=== PATIENT | female | born 1965 | race Caucasian/White ===

== ENCOUNTER 2018-04-23 18:12 | Inpatient (IN) | payer OTHER ==
[~2018-04-23] VITALS: Ht 160 cm; Wt 47.2 kg
--- NOTE | ~2018-04-23 | HC ---
[facility] [place] [address] CONSULTATION Name: HALINAAugust Room #: 361-P ADM IN M.R.#: [id number] Admission: 04/23/18 Attend Phys: Tristin Meyers MD Discharge: Date of : 61 Report #: [id number] THIS REPORT FOR: //name// CC: Tristin Meyers FAM physician/PCP ATTENDING PHYSICIAN: Dr. Meyers HISTORY OF PRESENT ILLNESS: This is a patient who I had seen several months ago for practically same issues. She has gone off her psychotropics. She is drinking. She has bouts of pancreatitis. She says that her anxiety remains high. She would like to get back on medications that seemed to help her last time. She does have history of hepatitis C as well. The patient says she has longstanding history of diagnoses including schizophrenia, PTSD. She is intermittent with her desire to stay compliant with medication she has not gotten followup for several years. The patient says she continues to be very anxious. She felt the Neurontin was helpful in terms of helping her peripheral neuropathy. She says "I'm not sure from what diagnosis." She said the trazodone helped with sleep. She wants to get back on the gabapentin. She is willing to get back on medications and willing to have followup in a [facility]. ALLERGIES: She has no known drug allergies. FAMILY PSYCHIATRIC HISTORY: She denies. SOCIAL HISTORY: She drinks about a pint of liquor a day. The patient struggles with support, she says she has at home, though the last time she was here, it was documented she was homeless and she says she has little support. She does not want any type of rehab referral or drug treatment, positive marijuana. Her laboratory is reviewed as well. Initially, lipase elevated at 647. Elevated alkaline phosphatase 152, ALT 131 and AST 330. She smokes marijuana 3 times a week. PAST MEDICAL HISTORY: History of hepatitis C and liver failure secondary to hypertension, pancreatitis secondary to alcohol abuse. ALLERGIES: HALDOL. MENTAL STATUS EXAMINATION: Anxious female, looks older than her apparent age. She is ruminative in her thought processes. She is not agitated. She is calm. She is polite. She is cooperative. She is denying danger to herself or others. She says she has voices coming to her and they bother her and sometimes it pushes her to drink. She understands risks and benefits, goals [facility] [address] [place] [address] CONSULTATION Name: HALINAAugust Room #: 361-P [facility] IN [facility].#: [id number] Admission: 04/23/18 Attend Phys: Tristin Meyers MD Discharge: Date of : 61 Report #: [id number] of care and treatment and is willing to take medications including risperidone, trazodone and Neurontin after discussion of risks and benefits of doing so. The patient understands risks and benefits including tardive dyskinesia and metabolic syndrome among other risks and benefits. Alert, oriented x 4. She has fair attention, fair concentration. Seems to have average intelligence based on fund of knowledge vocabulary. ASSETS: Willing to get help take medications. LIABILITIES: Relapses and no desire for rehabilitation treatment. DIAGNOSTIC IMPRESSION: AXIS I: 1. By the patient's report, she says she has diagnosis of schizophrenia. 2. Alcohol dependence. AXIS II: Deferred. AXIS III: As above. AXIS IV: Severe. AXIS V: Global Assessment of Functioning currently 50%. PLAN: The patient will be started on medications for sleep and get back on gabapentin. We will try a slightly higher dosing this time to see if it helps with anxiety as well as her, she complains she has, neuropathy, which is likely secondary to alcoholism. We will continue with an antipsychotic medication approach. We will try low-dose risperidone 0.5 mg twice daily. Thank you for the consultation. We will follow the patient. I do not anticipate her needing inpatient psychiatric care once she is medically stabilized. She can be discharged once medically stabilized. By: [id number] Krishna Rosales MD /nt
[~2018-04-23 18:12] MED LIST: GABAPENTIN 100100 MG PO; HYDROCODONE-AP1 EAC6 PO; LISINOPRIL20 MG PO; NORVASC10 MG PO; PROTONIX40 M1 PO; VITAMIN B-1100 M2 PO
[2018-04-23 18:14] VITALS: BP 199/108
[2018-04-23 19:02] LABS: URINE BILIRUBIN NEGATIVE (Negative); URINE BLOOD NEGATIVE (Negative); URINE CLARITY CLEAR; URINE COLOR YELLOW; URINE GLUCOSE-RANDOM* NEGATIVE (Negative); URINE KETONES NEGATIVE (Negative); URINE NITRITE-REFLEX NEGATIVE (Negative); URINE PROTEIN (DIPSTICK) NEGATIVE (Negative); URINE UROBILINOGEN 0.2 E.U./dl (0.2-1.0)
[2018-04-23 19:04] LABS: URINE LEUKOCYTES-REFLEX TRACE (Negative)
[2018-04-23 19:25] LABS: AMP/METHAMP Negative (Negative); BARBITURATES Negative (Negative); BENZODIAZEPINES Negative (Negative); COCAINE Negative (Negative); METHADONE Negative (Negative); OPIATES Negative (Negative); PCP Negative (Negative)
[2018-04-23 19:57] LABS: ABSOLUTE NEUTROPHILS 6.8 thou/uL (1.4-8.2); EOSINOPHILS 1.4 % (0.0-3.0); HEMATOCRIT 37.3 % (37.0-47.0); HEMOGLOBIN 13.1 gm/dL (12.0-15.0); MCHC 35.2 g/dL (28.0-37.0); MCV 90.9 fL (80.0-100.0); MONOCYTES 6.2 % (1.0-8.0); PLATELET COUNT 232 thou/uL (150-400); POLYS 78.4 % (36.0-66.0); RDW 13.7 % (10.5-14.5); WBC 8.6 thou/uL (4.0-11.0)
[2018-04-23 20:11] LABS: ALBUMIN 3.4 g/dL (3.4-5.0); CALCIUM 9.2 mg/dL (8.5-10.1); DIRECT BILIRUBIN 0.5 mg/dL (<0.1-0.3); TOTAL BILIRUBIN 0.8 mg/dL (<0.1-1.0); TOTAL PROTEIN 8.7 g/dL (6.4-8.2)
[2018-04-23 20:16] LABS: POTASSIUM 2.1 mmol/L (3.5-5.1)
[2018-04-23 21:47] VITALS: BP 184/123
[2018-04-23 22:36] VITALS: BP 190/112
[2018-04-23 22:40] VITALS: BP 197/127
[2018-04-23 23:19] LABS: MAGNESIUM 1.7 mg/dL (1.8-2.4); PHOSPHORUS 3.1 mg/dL (2.5-4.9)
[2018-04-24 05:01] VITALS: BP 186/114
[2018-04-24 05:58] LABS: CALCIUM 8.6 mg/dL (8.5-10.1); CREATININE 0.9 mg/dL (0.6-1.0)
[2018-04-24 06:00] LABS: POTASSIUM 3.4 mmol/L (3.5-5.1)
[2018-04-24 07:31] VITALS: BP 120/80
[2018-04-24 13:20] VITALS: BP 110/70
[2018-04-24 17:09] VITALS: BP 115/71
[2018-04-24 20:04] VITALS: BP 108/68
[2018-04-25 04:41] VITALS: BP 141/95; BP 149/95
[2018-04-25 06:30] LABS: CALCIUM 8.4 mg/dL (8.5-10.1); CREATININE 0.9 mg/dL (0.6-1.0); MAGNESIUM 1.6 mg/dL (1.8-2.4); PHOSPHORUS 2.7 mg/dL (2.5-4.9); POTASSIUM 3.3 mmol/L (3.5-5.1)
[2018-04-25 07:22] VITALS: BP 150/105
[2018-04-25 11:31] VITALS: BP 115/78
[2018-04-25 16:42] VITALS: BP 122/89
[2018-04-25 19:16] VITALS: BP 113/81
[2018-04-26 03:27] VITALS: BP 156/89
[2018-04-26 05:54] LABS: CALCIUM 8.6 mg/dL (8.5-10.1); CREATININE 0.9 mg/dL (0.6-1.0); POTASSIUM 4.5 mmol/L (3.5-5.1)
[2018-04-26 07:30] VITALS: BP 120/72
[2018-04-26 14:04] VITALS: BP 129/72
[2018-04-26 16:24] VITALS: BP 184/112
== END 2018-04-26 16:00 | disposition home or self-care (01) | DRG 440 ==
LOC: ER 18:12 → EROBS 21:27 → 3W 22:16
PROVIDERS: Emergency Medicine; Hospitalist; Nurse Practitioner Family
DX: K85.20 Alcohol induced acute pancreatitis without necrosis or infection (principal); I10 Essential (primary) hypertension; F17.210 Nicotine dependence, cigarettes, uncomplicated; E87.6 Hypokalemia; K72.90 Hepatic failure, unspecified without coma; F20.9 Schizophrenia, unspecified; F19.10 Other psychoactive substance abuse, uncomplicated; B18.2 Chronic viral hepatitis C; K59.00 Constipation, unspecified; K86.0 Alcohol-induced chronic pancreatitis; K58.9 Irritable bowel syndrome, unspecified; F31.9 Bipolar disorder, unspecified; F10.220 Alcohol dependence with intoxication, uncomplicated; F43.10 Post-traumatic stress disorder, unspecified; G62.9 Polyneuropathy, unspecified; Z59.0 Homelessness; Z71.6 Tobacco abuse counseling; Z71.41 Alcohol abuse counseling and surveillance of alcoholic; Z71.51 Drug abuse counseling and surveillance of drug abuser; Z79.899 Other long term (current) drug therapy; Z88.8 Allergy status to other drugs, medicaments and biological substances; Z28.21 Immunization not carried out because of patient refusal
CPT/HCPCS: 10879

== ENCOUNTER 2018-06-09 09:48 | Inpatient (IN) | payer OTHER ==
[2018-06-08 20:30] VITALS: BP 185/116
[2018-06-09] VITALS (9 sets, daily range): BP systolic 152–185; BP diastolic 95–116
[~2018-06-09] VITALS: Ht 160 cm; Wt 55.3 kg
[~2018-06-09 09:48] MED LIST changes: +PRENATAL COMPL1 EACH PO
[2018-06-09 10:00] LABS: URINE BILIRUBIN NEGATIVE (Negative); URINE BLOOD NEGATIVE (Negative); URINE CLARITY CLEAR; URINE COLOR YELLOW; URINE GLUCOSE-RANDOM* NEGATIVE (Negative); URINE KETONES NEGATIVE (Negative); URINE NITRITE-REFLEX NEGATIVE (Negative); URINE PROTEIN (DIPSTICK) NEGATIVE (Negative); URINE UROBILINOGEN 0.2 E.U./dl (0.2-1.0)
[2018-06-09 10:01] LABS: URINE LEUKOCYTES-REFLEX NEGATIVE (Negative)
--- NOTE | 2018-06-09 10:23 | NUR ---
HARD STICK, THIS NURSE AND TALAT ALAN ATTEMPTED IV X2
[2018-06-09 10:59] LABS: HEMATOCRIT 40.9 % (37.0-47.0); HEMOGLOBIN 13.8 gm/dL (12.0-15.0); MCHC 33.8 g/dL (28.0-37.0); MCV 91.6 fL (80.0-100.0); RBC 4.47 mil/uL (4.20-5.00); RDW 14.6 % (10.5-14.5); WBC 5.4 thou/uL (4.0-11.0)
[2018-06-09 11:03] LABS: CALCIUM 8.7 mg/dL (8.5-10.1); CREATININE 0.9 mg/dL (0.6-1.0)
[2018-06-09 11:09] LABS: ALBUMIN 3.5 g/dL (3.4-5.0); TOTAL BILIRUBIN 0.6 mg/dL (<0.1-1.0)
[2018-06-09 11:14] LABS: POTASSIUM 2.9 mmol/L (3.5-5.1)
[2018-06-09 11:28] LABS: AMP/METHAMP Negative (Negative); BARBITURATES Negative (Negative); BENZODIAZEPINES Negative (Negative); COCAINE Negative (Negative); METHADONE Negative (Negative); OPIATES Negative (Negative); PCP Negative (Negative)
--- NOTE | 2018-06-09 11:40 | NUR ---
DR CAMEJO WANTS IV DUE TO ADMISSION
[2018-06-09 13:02] LABS: FOLIC ACID 9.6 ng/mL (8.6-58.9)
--- NOTE | 2018-06-09 15:10 | NUR ---
PATIENT'S GOWN AND LINENS WET. PT STATES SHE SPILLED HER WATER. PT REFUSES TO LET STAFF CHANGE BED LINENS OR GOWN. STATES SHE DOESN'T CARE AND ABSOLUTELY DOES NOT WANT TO LET ANYONE CHANGE THE SHEET OR HER GOWN. WILL CONTINUE TO ENCORAGE.
--- NOTE | 2018-06-09 19:28 | NUR ---
PT ARRIVED TO UNIT FROM ED. PT IS SLEEPING, WILL NOT FOLLOW COMMANDS, WILL NOT ANSWER QUESTIONS, OR ALLOW ME TO COMPLETE MY ADMISSION OR ASSESSMENT THIS TIME. THE ONLY THING THE PT WILL VERBALIZE IS THAT SHE WANTS "A SHOT", CONTINUALLY ASKING IF IT IS TIME FOR A SHOT. PROVIDING LORAZAPAM PER PROTOCOL AND ABLE TO ASSESS CIWA. PT IMPULSIVE AT TIMES WELL. EASILY REDIRECTED. PT ONLY SEEMS TO COOPERATE OR TALK WHEN SHE IS ASKING FOR SOMETHING. UNABLE TO ASSESS PT PROPERLY AND COMPLETE ADMISSION PROCESS.
[2018-06-10] VITALS (7 sets, daily range): BP systolic 109–156; BP diastolic 72–99
[2018-06-10 04:05] LABS: HEMATOCRIT 32.8 % (37.0-47.0); MCH 30.8 pg (26.0-34.0); MCHC 33.6 g/dL (28.0-37.0); MCV 91.8 fL (80.0-100.0); RBC 3.58 mil/uL (4.20-5.00); RDW 14.4 % (10.5-14.5); WBC 7.1 thou/uL (4.0-11.0)
[2018-06-10 04:09] LABS: CALCIUM 7.4 mg/dL (8.5-10.1); POTASSIUM 3.2 mmol/L (3.5-5.1)
[2018-06-10 04:16] LABS: ALBUMIN 2.8 g/dL (3.4-5.0); MAGNESIUM 1.1 mg/dL (1.8-2.4); TOTAL BILIRUBIN 0.8 mg/dL (<0.1-1.0)
--- NOTE | 2018-06-10 06:28 | NUR ---
ASSUMED PT CARE AT 1900 WITH NO SIGN OF DISTRESS NOTED. PT IS DROWSY AND REFUSES TO ANSWER ADMISSION QUESTIONS OR TALK TO THE DOCTOR PER DIEM REGISTERED NURSE. COMPLETE ASSESSMENT NOT COMPLETED DUE TO PATIENT'S NOT BEEN RECEPTIVE. PT IS STABEL, PT IS ON ETOH WITHDRWAL PROTOCOL. PT IS STABLE, PT IS NOTED TO HAVE ELEVATED BLOOD PRESSURE. MISSILE INSPECTOR PREFLIGHT NOTIFIED ABOUT ELEVATED BLOOD PRESSURE AND MEDICATION IS ADMINISTERED. NO FURTHER SIGN OF DISTRESS NOTED AT THIS TIME. DENIES ANY FURTHER NEEDS.
--- NOTE | 2018-06-10 09:41 | NUR ---
Nutrition: pt seen due to admitting dx of pancreatitis. Hx ETOH, pancreatitis, drug abuse, hepatitis C. CT showed lung mass, concern for CA. Homeless per H&P, lives in [facility]. Noted UBW last year 110#. Current 140#. Pt feels she has gained some weight. Good appetite reported and asking for food currently although only on clear liquids. Will offer ensure clear BID. On , thiamine supplementation. Folate/B12 WNL. Follow for ability to advance diet. Place as low nutrition risk.
--- NOTE | 2018-06-10 14:15 | NUR ---
met with patient she discharged from [facility] in May 2018 with same diagnosis of ETOH withdraw, pancreatitis. At that time patient given resources for outpatient tx options and [facility] clinic info. Patient reports she never f/u on calling [facility] or any resources given. Patient reports she does not want to stop drinking right now. She has not seen therapist or phys on outpatient basis. She reports at [place] she is staying in apt with friend. her friend knows she is in hospital. [facility].
--- NOTE | 2018-06-10 18:09 | NUR ---
PT CARE ASSUMED AT APPROX 0700. PT ALERT AND ORIENTED X4 AT THIS TIME. MOST OF DAY PT WAS DROWSY BUT ALWAYS EASILY AROUSABLE. REPORTS HEADACHE INTERMITTENTLY. CIWA SCORE HAS RANGED FROM 5-11. MEDICATED APPROPRIATELY. VSS. FALL PRECAUTIONS IN PLACE BUT PT NONCOMPLIANT WITH CALLING FOR ASSISTANCE TO AMBULATE. MONITORING AND MEDICATING FOR ELEVATED AMMONIA. CLEAR LIQUID DIET MAINTAINED. IVF MAINTAINED. MAG AND K+ REPLACED THIS SHIFT. LEVEL REASSESSMENTS TIMED FOR RECOLLECTION. WILL F/U. ADMISSION COMPLETED SINCE PT WAS MORE ALERT THIS SHIFT. NO DISTRESS NOTED AT THIS TIME OR THIS SHIFT.
[2018-06-10 18:19] LABS: MAGNESIUM 1.5 mg/dL (1.8-2.4); POTASSIUM 4.2 mmol/L (3.5-5.1)
--- NOTE | 2018-06-11 03:22 | NUR ---
ASSESSMENT DOCUMENTED.PT RESTING IN NO ACUTE DISTRESS.REMAINS A/OX4.NO BEHAVIOUR CHANGES NOTED.CONTINUES TO C/O MILD HEADACHE AND NAUSEA.ON ALCOHOL WITHDRAWAL PER PROTOCOL,CIWR SCORES 5-8,MEDICATED PER ORDERS.PT UP AMBULATING ON THE HALLWAYS X2 WITH STAFF ASSIST.GAIT STEADY.IVF INFUSING,VOIDING ADEQUATELY.ON CLEAR LIQUID DIET THAT PT WANTS TO BE ADVANCED TO REGULAR FOOD.VSS.PAIN MEDS GIVEN FOR BACK PAIN WITH RELIEF.PT DENIES ANY OTHER NEEDS AT THIS TIME.WILL CONT TO MONITOR PER POC.
[2018-06-11 04:26] LABS: ALBUMIN 2.5 g/dL (3.4-5.0); MAGNESIUM 1.7 mg/dL (1.8-2.4); PHOSPHORUS 2.2 mg/dL (2.5-4.9); POTASSIUM 3.9 mmol/L (3.5-5.1); TOTAL BILIRUBIN 0.8 mg/dL (<0.1-1.0); TOTAL PROTEIN 6.5 g/dL (6.4-8.2)
[2018-06-11 04:32] LABS: HEMOGLOBIN 10.9 gm/dL (12.0-15.0); MCH 30.8 pg (26.0-34.0); MCHC 32.9 g/dL (28.0-37.0); MCV 93.5 fL (80.0-100.0); RBC 3.53 mil/uL (4.20-5.00); RDW 14.6 % (10.5-14.5); WBC 4.7 thou/uL (4.0-11.0)
[2018-06-11 04:34] VITALS: BP 128/83
[2018-06-11 07:10] VITALS: BP 119/70
[2018-06-11 11:10] VITALS: BP 141/99
[2018-06-11 15:43] VITALS: BP 148/84
--- NOTE | 2018-06-11 15:59 | NUR ---
PT CARE ASSUMED APPROX 0700. PT ALERT AND ORIENTED X4. DENIES SOA. C/O ABD PAIN 2-08/08. MANAGING PAIN WITH FENTANYL. CIWA PROTOCOL REMAINS IN POC. ASSESSING AND MEDICATING APPROPRIATELY. VSS. PT IS GETTING MORE ANXIOUS AND AGITATED. WILL MEDICATE APPROPRIATELY. NONCOMPLIANT WITH REQUEST TO CALL FOR ASSISTANCE TO AMBULATE. FALL PRECAUTIONS IN PLACE. REINFORCING POLICY. IVF RUNNING. DIET ADVANCED. TOLERATING. MAG REPLACED THIS SHIFT PER PROTOCOL. NO S/S OF DISTRESS NOTED. PT SAFE AT THIS TIME.
[2018-06-11 19:40] VITALS: BP 133/91
--- NOTE | 2018-06-12 03:54 | NUR ---
ASSESSMENT DOCUMENTED.PT RESTING IN NO ACUTE DISTRESS.VSS.PT CONTINUES TO C/O PAIN TO ABD/BACK,NAUSEA ADN HEADACHES.ON ALCOHOL WITHDRAWAL,CIWR SCORE HAS BEEN 10,TREATMENT ADMINISTERED PER ORDERS.PT REQUESTING FOR SNACKS AND DRINKS FREQUENTLY.AMBULATES ON THE HALLWAY SEVERAL TIMES OVER THE NIGHT.POC IS TO HAVE EGD/COLONOSCOPY ON THURSDAY.WILL CONT TO MONITOR PER POC.
[2018-06-12 04:14] VITALS: BP 126/83
[2018-06-12 05:38] LABS: ALBUMIN 2.4 g/dL (3.4-5.0); ANION GAP 9 mmol/L (7-16); BUN 11 mg/dL (7-18); CALCIUM 8.4 mg/dL (8.5-10.1); CHLORIDE 110 mmol/L (98-107); CHOLESTEROL 111 mg/dL (<200); CO2 21 mmol/L (21-32); CREATININE 1.1 mg/dL (0.6-1.0); GLUCOSE 111 mg/dL (74-106); HDL CHOLESTEROL 28 mg/dL (>40); LDL CHOLESTEROL 73 mg/dL (<100); LIPASE 463 U/L (73-393); MAGNESIUM 1.6 mg/dL (1.8-2.4); SERUM ASSESSMENT Clear; SGOT 180 U/L (15-37); SGPT 95 U/L (30-65); SODIUM 140 mmol/L (136-145); TOTAL BILIRUBIN 0.6 mg/dL (<0.1-1.0); TOTAL PROTEIN 6.5 g/dL (6.4-8.2); TRIGLYCERIDE 53 mg/dL (<150); VLDL 11 mg/dL (<40)
[2018-06-12 08:00] VITALS: BP 118/81
[2018-06-12] MEDS ORDERED: VITAMIN B-1100 M2 PO (11:18)
[2018-06-12] MEDS ORDERED: NICOTINE TRANSD14 M1 TRANSDERM (11:18)
[2018-06-12] MEDS ORDERED: VITAMIN B-12100 MC1 PO (11:18)
[2018-06-12] MEDS ORDERED: ACETAMINOPHEN325 M1 PO (11:18)
[2018-06-12] MEDS ORDERED: ATIVAN1 MG PO (11:18)
[2018-06-12] MEDS ORDERED: A THRU Z SELEC1 EAC6 PO (11:18)
[2018-06-12] MEDS ORDERED: TRAZODONE HCL50 MG PO (11:18)
[2018-06-12] MEDS ORDERED: LACTULOSE20 GM/30 M PO (11:18)
[2018-06-12] MEDS ORDERED: PEPCID20 MG PO (11:18)
[2018-06-12] MEDS ORDERED: CLONIDINE1 EAC1 TRANSDERM (11:18)
[2018-06-12] MEDS ORDERED: MAGNESIUM400 MG PO (11:18)
[2018-06-12 12:47] VITALS: BP 118/81
--- NOTE | 2018-06-12 16:12 | NUR ---
ASSUMED CARE OF PATIENT AT 0700. PT/VITALS STABLE. COMPLAINS OF LOWER BACK PAIN WHICH IS ALLEVIATED WITH FENTANYL. TOLERATES ACTIVITY WELL. ASSESSMENT CHARTED. NO CHEST PAIN NOTED. PATIENT ASKS FOR PAIN MEDICATION AND ANXIETY MEDICINE AT THE EXACT TIME THAT SHE IS DUE FOR IT. PATIENT IS ANXIOUS TO BE DISCHARGED. DISCHARGE ORDERS WRITTEN BY DR. AMADOR. TELE AND IV REMOVED. PATIENT STATES THAT SHE FEELS MUCH BETTER THAN SHE DID ON ADMISSION. SHE STATED THAT SHE HAD NO RIDE HOME AND WAS GIVEN A CAB VOUCHER TO THE [facility] WHERE SHE STAYS. SHE WAS LEFT IN THE ER WAITING ROOM WITH SECURITY AWAITING HER CAB.
== END 2018-06-12 13:09 | disposition home or self-care (01) | DRG 441 ==
LOC: ER 09:48 → EROBS 13:41 → 2N 13:41
PROVIDERS: Emergency Medicine; ADMIT Internal Medicine
DX: K72.90 Hepatic failure, unspecified without coma (principal); K85.20 Alcohol induced acute pancreatitis without necrosis or infection; E43 Unspecified severe protein-calorie malnutrition; N17.9 Acute kidney failure, unspecified; F10.239 Alcohol dependence with withdrawal, unspecified; I10 Essential (primary) hypertension; E87.6 Hypokalemia; F17.210 Nicotine dependence, cigarettes, uncomplicated; B18.2 Chronic viral hepatitis C; K70.0 Alcoholic fatty liver; F10.229 Alcohol dependence with intoxication, unspecified; E83.42 Hypomagnesemia; E83.51 Hypocalcemia; E78.5 Hyperlipidemia, unspecified; N18.3 Chronic kidney disease, stage 3 (moderate); G47.33 Obstructive sleep apnea (adult) (pediatric); F12.10 Cannabis abuse, uncomplicated; E66.01 Morbid (severe) obesity due to excess calories; E11.22 Type 2 diabetes mellitus with diabetic chronic kidney disease; I12.9 Hypertensive chronic kidney disease with stage 1 through stage 4 chronic kidney disease, or unspecified chronic kidney disease; F39 Unspecified mood [affective] disorder; H66.90 Otitis media, unspecified, unspecified ear; F41.9 Anxiety disorder, unspecified; Z68.21 Body mass index [BMI] 21.0-21.9, adult; Z79.899 Other long term (current) drug therapy
CPT/HCPCS: 10081

== ENCOUNTER 2018-07-09 09:31 | Inpatient (IN) | payer OTHER ==
[~2018-07-09] VITALS: Ht 167.6 cm; Wt 59.9 kg
[~2018-07-09 09:31] MED LIST changes: +A THRU Z SELEC1 EAC6 PO; +ACETAMINOPHEN325 M1 PO; +ATIVAN1 MG PO; +CLONIDINE1 EAC1 TRANSDERM; +LACTULOSE20 GM/30 M PO; +MAGNESIUM400 MG PO; +NICOTINE TRANSD14 M1 TRANSDERM; +PEPCID20 MG PO; +TRAZODONE HCL50 MG PO; +VITAMIN B-12100 MC1 PO
[2018-07-09 09:32] VITALS: BP 130/96
--- NOTE | 2018-07-09 10:00 | NUR ---
PT NONCOMPLIANT WITH STAFF, REFUSING TO COMPLY WITH INSTRUCTIONS
[2018-07-09 10:34] LABS: ABSOLUTE NEUTROPHILS 11.9 thou/uL (1.4-8.2); BASOPHILS 0.6 % (0.0-2.0); EOSINOPHILS 0.6 % (0.0-3.0); HEMATOCRIT 40.4 % (37.0-47.0); HEMOGLOBIN 13.9 gm/dL (12.0-15.0); LYMPHOCYTES 14.1 % (24.0-44.0); MCH 31.1 pg (26.0-34.0); MCHC 34.3 g/dL (28.0-37.0); MCV 90.6 fL (80.0-100.0); PLATELET COUNT 285 thou/uL (150-400); POLYS 75.7 % (36.0-66.0); RBC 4.46 mil/uL (4.20-5.00); RDW 14.4 % (10.5-14.5); WBC 15.8 thou/uL (4.0-11.0)
--- NOTE | 2018-07-09 10:45 | NUR ---
PT ADMITS TO SMOKING PCP-LACED MARIJUANA 5 DAYS AGO, AND "MAYBE SINCE THEN, THEY WON'T TELL ME"
[2018-07-09 10:46] LABS: ANION GAP 14 mmol/L (7-16); BUN 8 mg/dL (7-18); CALCIUM 9.3 mg/dL (8.5-10.1); CHLORIDE 104 mmol/L (98-107); CO2 20 mmol/L (21-32); CREATININE 0.8 mg/dL (0.6-1.0); GLUCOSE 125 mg/dL (74-106); POTASSIUM 3.1 mmol/L (3.5-5.1); SODIUM 138 mmol/L (136-145)
[2018-07-09 10:53] LABS: ALBUMIN 3.1 g/dL (3.4-5.0); MAGNESIUM 1.9 mg/dL (1.8-2.4); SALICYLATE 2.9 mg/dL (2.8-20.0); SGOT 99 U/L (15-37); SGPT 70 U/L (30-65); TOTAL BILIRUBIN 0.5 mg/dL (<0.1-1.0); TOTAL PROTEIN 9.1 g/dL (6.4-8.2); TROPONIN-I <0.06 ng/mL (<0.06)
--- NOTE | 2018-07-09 10:55 | NUR ---
PT CLIMBING OUT OF BED AND REPORTING HEARING VOICES AT THIS TIME, TO MOVE TO ROOM 7 FOR PSYCH/AGGRESION PRECAUTIONS
[2018-07-09 11:08] LABS: URINE BILIRUBIN NEGATIVE (Negative); URINE BLOOD NEGATIVE (Negative); URINE CLARITY CLEAR; URINE COLOR YELLOW; URINE GLUCOSE-RANDOM* NEGATIVE (Negative); URINE KETONES NEGATIVE (Negative); URINE LEUKOCYTES-REFLEX NEGATIVE (Negative); URINE NITRITE-REFLEX NEGATIVE (Negative); URINE PROTEIN (DIPSTICK) NEGATIVE (Negative); URINE SPECIFIC GRAVITY <= 1.005 (1.005-1.035); URINE UROBILINOGEN 0.2 E.U./dl (0.2-1.0)
[2018-07-09 11:18] LABS: AMP/METHAMP Negative (Negative); BARBITURATES Negative (Negative); BENZODIAZEPINES Negative (Negative); COCAINE Negative (Negative); METHADONE Negative (Negative); OPIATES Negative (Negative); PCP Negative (Negative)
[2018-07-09 15:18] VITALS: BP 152/78
[2018-07-09 15:28] VITALS: BP 152/74
[2018-07-09 16:00] VITALS: BP 157/103
--- NOTE | 2018-07-09 18:38 | NUR ---
ASSUMED PATIENT CARE FROM ED. IT WAS NOTED IN ED THAT PATIENT WAS HEARING VOICES. PATIENT HAS NOT ACTED LIKE OR VERBALIZED THIS SINCE ARRIVAL TO FLOOR. PATIENTS CIWA WAS 13 UPON ARRIVAL TO FLOOR. ATIVAN GIVEN TWICE ACCORDING TO CIWA PROTOCOL. PATIENT ALSO COMPLAINING OF RIGHT RIB PAIN, FENTANYL GIVEN FOR PAIN. PATIENT REFUSED SCD'S. PATIENT RUNNING SINUS TACH ON THE MONITOR.
[2018-07-09 20:35] VITALS: BP 169/99
[2018-07-10 00:50] VITALS: BP 155/98
--- NOTE | 2018-07-10 04:05 | NUR ---
PT MAKING SLOW PROGRESS TOWARD GOALS. C/O HEADACHE 10/10 UPON INITIAL ASSESSMENT. INITIALLY TREATED WITH TYLENOL. ALSO GIVEN ONE DOSE OF FENTANYL. THIS AM PT REPORTS 5/10 HEADACHE. TYLENOL GIVEN PER REQUEST. SEE CIWA PROTOCOL AND M.A.R. FOR DOSING. INITIAL CIWA SCORE 13. SCORED 9 THIS AM. ON ROOM AIR THROUGHOUT THE NIGHT. WOB INCREASES WITH PT MOVEMENT AND LAST BRIEFLY ONCE LYING BACK DOWN IN BED. HAS DENIED ANY SIGNIFICANT SOA. SEE CHARTING.
[2018-07-10 05:46] VITALS: BP 142/94
[2018-07-10 07:42] LABS: MCH 30.6 pg (26.0-34.0); MCHC 33.5 g/dL (28.0-37.0); MCV 91.3 fL (80.0-100.0); RBC 3.73 mil/uL (4.20-5.00); RDW 14.2 % (10.5-14.5); WBC 8.7 thou/uL (4.0-11.0)
[2018-07-10 07:47] LABS: HEMOGLOBIN 11.4 gm/dL (12.0-15.0)
[2018-07-10 07:53] LABS: ALBUMIN 2.3 g/dL (3.4-5.0); CREATININE 0.8 mg/dL (0.6-1.0); MAGNESIUM 1.2 mg/dL (1.8-2.4); POTASSIUM 3.1 mmol/L (3.5-5.1); TOTAL BILIRUBIN 0.9 mg/dL (<0.1-1.0)
[2018-07-10 08:27] VITALS: BP 150/100
--- NOTE | 2018-07-10 10:40 | EKG ---
[address] [place] [address] ELECTROCARDIOGRAM REPORT Name: ALKA MEADE Room #: 359-P ADM IN M.R.#: [id number] Admission: 07/09/18 Attend Phys: Javy Martinez MD Discharge: Date of : 61 Report #: [id number] THIS REPORT FOR: //name// [facility] ED Test Date: 2018-07-09 Test Time: 11:11:58 Pat Name: ALKA MEADE Department: Room: 359 Gender: F Cane Flume Watchman: ANTELMO : 1965 Requested By: Mark Hodge Order Number: [id number] MD: Cedric Juarez Measurements Intervals [place] Rate: 122 P: 67 NM: 149 QRS: 37 QRSD: 91 T: 44 QT: 330 QTc: 470 Interpretive Statements Sinus tachycardia Abnormal R-wave progression, early transition Compared to ECG 05/11/2018 10:21:39 Atrial abnormality no longer present Electronically Signed On 07-10-2018 10:40:34 SOLAR PV INSTALLER by Cedric Juarez [email or web address] <ELECTRONICALLY SIGNED> By: Cedric Juarez MD 07/10/18 1040 1111 Toni Juarez MD /ROSELINE
--- NOTE | 2018-07-10 12:20 | NUR ---
Assumed care of Pt at 0700. DEISI 9-13. Largely cooperative this AM. Asking for more pain medications. Discussed with physician regarding patients needs - fentanyl d/c'd and added tramadol. shortly after pt calmly asking for AMA paperwork - notified physician - AMA paperwork given and signed.
== END 2018-07-10 12:25 | disposition left against medical advice (07) | DRG 871 ==
LOC: ER 09:31 → EROBS 11:27 → 2N 11:48 → EROBS 12:23 → 3W 15:29
PROVIDERS: Emergency Medicine; ADMIT Internal Medicine
DX: A41.9 Sepsis, unspecified organism (principal); J18.9 Pneumonia, unspecified organism; E43 Unspecified severe protein-calorie malnutrition; F10.230 Alcohol dependence with withdrawal, uncomplicated; K86.0 Alcohol-induced chronic pancreatitis; I10 Essential (primary) hypertension; B19.20 Unspecified viral hepatitis C without hepatic coma; F17.210 Nicotine dependence, cigarettes, uncomplicated; E87.6 Hypokalemia; F41.9 Anxiety disorder, unspecified; F32.9 Major depressive disorder, single episode, unspecified; F43.10 Post-traumatic stress disorder, unspecified; R91.8 Other nonspecific abnormal finding of lung field; K21.9 Gastro-esophageal reflux disease without esophagitis; G31.2 Degeneration of nervous system due to alcohol; Z68.21 Body mass index [BMI] 21.0-21.9, adult; Z91.14 Patient's other noncompliance with medication regimen; Z79.899 Other long term (current) drug therapy
CPT/HCPCS: 10879

== ENCOUNTER 2018-08-10 11:59 | Inpatient (IN) | payer OTHER ==
[~2018-08-10] VITALS: Ht 160 cm; Wt 54.1 kg
[2018-08-10 11:59] VITALS: BP 141/97
[2018-08-10 12:05] VITALS: BP 141/97
[2018-08-10 13:07] LABS: HEMATOCRIT 40.9 % (37.0-47.0); HEMOGLOBIN 13.4 gm/dL (12.0-15.0); MCH 28.7 pg (26.0-34.0); MCHC 32.8 g/dL (28.0-37.0); MCV 87.5 fL (80.0-100.0); PLATELET COUNT 445 thou/uL (150-400); RBC 4.68 mil/uL (4.20-5.00); RDW 16.2 % (10.5-14.5); WBC 19.1 thou/uL (4.0-11.0)
[2018-08-10 13:43] LABS: ABSOLUTE NEUTROPHILS 14.9 thou/uL (1.4-8.2); PLATELET ESTIMATE INCREASED
[2018-08-10 14:12] LABS: CALCIUM 9.2 mg/dL (8.5-10.1); CREATININE 0.9 mg/dL (0.6-1.0); POTASSIUM 3.7 mmol/L (3.5-5.1)
[2018-08-10 14:16] LABS: ALBUMIN 2.3 g/dL (3.4-5.0); TOTAL BILIRUBIN 0.4 mg/dL (<0.1-1.0); TOTAL PROTEIN 7.3 g/dL (6.4-8.2)
[2018-08-10 16:27] LABS: BF NUCLEATED CELLS 360; BF RBC 515
[2018-08-10 16:33] LABS: AMP/METHAMP Negative (Negative); BARBITURATES Negative (Negative); BENZODIAZEPINES POSITIVE (Negative); COCAINE Negative (Negative); METHADONE Negative (Negative); OPIATES Negative (Negative); PCP Negative (Negative)
[2018-08-10 16:33] LABS: CLARITY HAZY; COLOR YELLOW; TOTAL VOLUME 63 mL
[2018-08-10 16:34] LABS: SOURCE ABDOMINAL
[2018-08-10 17:19] LABS: CHOLESTEROL 143 mg/dL (<200); HDL CHOLESTEROL 25 mg/dL (>40); LDL CHOLESTEROL 96 mg/dL (<100); TC:HDL 5.7 Ratio (Not establshd); TRIGLYCERIDE 111 mg/dL (<150); VLDL 22 mg/dL (<40)
[2018-08-10 17:31] LABS: BF MACROPHAGE 7; BF NEUTROPHILS 5
[2018-08-10 17:47] LABS: INR 1.4; PROTIME 14.7 Seconds (9.3-11.4)
[2018-08-10 18:23] LABS: SOURCE ABDOMINAL
[2018-08-10 20:15] VITALS: BP 151/92
[2018-08-10 20:53] VITALS: BP 131/90
[2018-08-10 21:40] VITALS: BP 141/95
[2018-08-10 22:22] LABS: HEMATOCRIT 36.3 % (37.0-47.0); HEMOGLOBIN 11.9 gm/dL (12.0-15.0)
[2018-08-11 00:20] VITALS: BP 136/84
[2018-08-11 04:50] VITALS: BP 139/81
[2018-08-11 05:44] LABS: HEMATOCRIT 35.4 % (37.0-47.0); HEMOGLOBIN 11.5 gm/dL (12.0-15.0)
[2018-08-11 05:56] LABS: ALBUMIN 1.9 g/dL (3.4-5.0); CREATININE 0.8 mg/dL (0.6-1.0); MAGNESIUM 1.6 mg/dL (1.8-2.4); POTASSIUM 3.6 mmol/L (3.5-5.1); TOTAL BILIRUBIN 0.6 mg/dL (<0.1-1.0); TOTAL PROTEIN 5.8 g/dL (6.4-8.2)
--- NOTE | 2018-08-11 06:32 | NUR ---
PT ARRIVED FROM ER VIA WHEELCHAIR. PLACED IN ROOM 355. ORDERS IN PROGRESS. PT C/O GENERALIZED ABDOMINAL PAIN AND STATING "I NEED SOME FENTANYL." ADMISSION ASSESSMENTS COMPLETED. ORDERS RECEIVED FOR MORPHINE AND GIVEN PER ORDERS. PT MAKING SLOW PROGRESS TOWARDS GOALS. SEE CHARTING.
[2018-08-11 07:28] VITALS: BP 111/74
[2018-08-11] MEDS ORDERED: LEVAQUIN 500 M500 M2 PO (10:07)
[2018-08-11] MEDS ORDERED: CHLORDIAZEPOXID25 M1 PO (10:08)
[2018-08-11] MEDS ORDERED: LACTULOSE20 GM/30 M PO (10:08)
[2018-08-11] MEDS ORDERED: VITAMIN B-1100 M2 PO (10:08)
[2018-08-11] MEDS ORDERED: SPIRONOLACTONE25 M1 PO (10:09)
[2018-08-11 11:36] VITALS: BP 124/92
[2018-08-11 14:59] VITALS: BP 124/92
[2018-08-11 16:10] VITALS: BP 120/87
--- NOTE | 2018-08-11 16:17 | NUR ---
ASSESSMENT: CM REVIEWED CHART AND MET WITH PATIENT AT THE BEDSIDE. PT IS ALERT AND ORIENTED X4. PT REPORTS LIVING AT [facility] AND PLANS ON RETURNING THERE AT DISCHARGE. PT REPORTS BEING FULLY INDEPENDENT WITH ADLS AND AMBULATION. CM DISCUSSED ROLE AND OFFERED ANY OUTPATIENT RESOURCES. PT DECLINES THE NEED AND DECLINES THE NEED FOR AA/ETOH RESOURCES. PT REPORTS SHE DOES NOT HAVE TRANSPORATION HOME. CM CONTACTED [facility] [phone], TRIP#[id number]. TO [facility], [address] [place] [address].
--- NOTE | 2018-08-11 17:52 | NUR ---
ASSUMED CARE OF PT AT APPROX 0700. PT IS ALERT AND ORIENTED X4, FORGETFUL AT TIMES BUT EASILY REORIENTED. LOW CIWA SCORING. IV ANTBX GIVEN. NPO UNTIL LUNCH. DENIES N/V. RECIEVED ORDERS FOR DC. PT CALLED RIDE, RIDE THEN BACKED OUT. GOT TRANSPORTATION SET UP FOR PT. PT JUST WAITING ON TRANSPORTATION. IV AND TELE DISCHARGED. DC INSTRUCTIONS AND NEW SCRIPTS GIVEN TO PATIENT. NO NEW CONCERNS VOICED BY PATIENT. PT HAS MET POC GOALS OF DC. WAITING ON TRANSPORT.
== END 2018-08-11 19:23 | disposition home or self-care (01) | DRG 441 ==
LOC: ER 11:59 → EROBS 16:45 → 3W 21:17 → ENTRNSPT 08-11 19:23 → 3W 08-11 19:23
PROVIDERS: Nurse Practitioner; Student in an Organized Health Care Education/Training Program; ADMIT Hospitalist
PROC: 0W9G3ZZ Drainage of Peritoneal Cavity, Percutaneous Approach (ICD-10-PCS; principal; 2018-08-10)
DX: K72.90 Hepatic failure, unspecified without coma (principal); J18.9 Pneumonia, unspecified organism; K92.0 Hematemesis; K86.1 Other chronic pancreatitis; K70.11 Alcoholic hepatitis with ascites; K70.31 Alcoholic cirrhosis of liver with ascites; I10 Essential (primary) hypertension; M54.9 Dorsalgia, unspecified; F12.90 Cannabis use, unspecified, uncomplicated; K52.9 Noninfective gastroenteritis and colitis, unspecified; F17.210 Nicotine dependence, cigarettes, uncomplicated; K59.00 Constipation, unspecified; G89.4 Chronic pain syndrome; F19.10 Other psychoactive substance abuse, uncomplicated; G31.2 Degeneration of nervous system due to alcohol; Z53.21 Procedure and treatment not carried out due to patient leaving prior to being seen by health care provider; Z79.899 Other long term (current) drug therapy
CPT/HCPCS: 10879

== ENCOUNTER 2018-08-12 17:47 | Inpatient (IN) | payer OTHER ==
[~2018-08-12] VITALS: Ht 160 cm; Wt 58.8 kg
[~2018-08-12 17:47] MED LIST changes: +CHLORDIAZEPOXID25 M1 PO; +LEVAQUIN 500 M500 M2 PO; +SPIRONOLACTONE25 M1 PO
[2018-08-12 17:48] VITALS: BP 143/104
[2018-08-12 20:01] LABS: BASOPHILS 0.5 % (0.0-2.0); HEMATOCRIT 38.7 % (37.0-47.0); HEMOGLOBIN 12.8 gm/dL (12.0-15.0); MCH 29.5 pg (26.0-34.0); MCHC 33.1 g/dL (28.0-37.0); MCV 89.2 fL (80.0-100.0); MONOCYTES 4.6 % (1.0-8.0); POLYS 85.9 % (36.0-66.0); RBC 4.34 mil/uL (4.20-5.00); RDW 14.6 % (10.5-14.5); WBC 19.8 thou/uL (4.0-11.0)
[2018-08-12 20:02] LABS: PLATELET COUNT 348 thou/uL (150-400)
[2018-08-12 20:09] LABS: CALCIUM 8.9 mg/dL (8.5-10.1); POTASSIUM 3.4 mmol/L (3.5-5.1)
[2018-08-12 20:15] LABS: ALBUMIN 2.4 g/dL (3.4-5.0); TOTAL BILIRUBIN 0.4 mg/dL (<0.1-1.0); TOTAL PROTEIN 7.5 g/dL (6.4-8.2)
[2018-08-12 20:24] LABS: APTT 25.7 Seconds (24.5-32.8); INR 1.1
[2018-08-13] VITALS (43 sets, daily range): BP systolic 97–162; BP diastolic 62–136
[2018-08-13 00:29] LABS: URINE BILIRUBIN NEGATIVE (Negative); URINE BLOOD 3+ (Negative); URINE CLARITY CLEAR; URINE COLOR YELLOW; URINE GLUCOSE-RANDOM* NEGATIVE (Negative); URINE KETONES NEGATIVE (Negative); URINE LEUKOCYTES-REFLEX NEGATIVE (Negative); URINE NITRITE-REFLEX NEGATIVE (Negative); URINE PROTEIN (DIPSTICK) NEGATIVE (Negative); URINE UROBILINOGEN 0.2 E.U./dl (0.2-1.0)
[2018-08-13 00:36] LABS: AMP/METHAMP Negative (Negative); BARBITURATES Negative (Negative); BENZODIAZEPINES POSITIVE (Negative); COCAINE Negative (Negative); METHADONE Negative (Negative); OPIATES POSITIVE (Negative); PCP Negative (Negative)
[2018-08-13 00:46] LABS: BACTERIA-REFLEX 1-9 Few /HPF (None Seen); CASTS None Seen /LPF (None Seen); CRYSTALS None Seen /LPF (None Seen); MUCUS 0-3 Light strn/LPF (None Seen); SQUAMOUS 0-3 Few /LPF (0-3); URINE RBC >20 Many /HPF (0-2); URINE WBC-REFLEX 0-5 Rare /HPF (0-5)
[2018-08-13 03:32] LABS: ANION GAP 17 mmol/L (7-16); CHLORIDE 108 mmol/L (98-107); CO2 13 mmol/L (21-32); GLUCOSE 106 mg/dL (74-106); MAGNESIUM 1.6 mg/dL (1.8-2.4); PHOSPHORUS 4.2 mg/dL (2.5-4.9); SGOT 196 U/L (15-37); SGPT < 6 U/L (30-65); SODIUM 138 mmol/L (136-145); TOTAL BILIRUBIN 0.5 mg/dL (<0.1-1.0); TOTAL PROTEIN 5.9 g/dL (6.4-8.2)
[2018-08-13 03:34] LABS: POTASSIUM 4.5 mmol/L (3.5-5.1)
[2018-08-13 03:35] LABS: BUN 10 mg/dL (7-18)
[2018-08-13 04:20] LABS: HEMATOCRIT 36.3 % (37.0-47.0); HEMOGLOBIN 11.7 gm/dL (12.0-15.0); MCH 29.3 pg (26.0-34.0); MCHC 32.3 g/dL (28.0-37.0); MCV 90.8 fL (80.0-100.0); WBC 16.3 thou/uL (4.0-11.0)
--- NOTE | 2018-08-13 05:01 | NUR ---
ADMISSION NOTE: PT ARRIVED ON THE UNIT APPROX 08/13/18 0130 WITH THE ASSIST OF DESTINEY ALAN FROM THE ER. PT ALERT AND ORIENTED X4, PT ON RA, SATS IN THE 9O'S, PT IN ST RHYTHM, OCTRETIDE GTT, VANCO GTT AND VANCOMYCIN GTT RUNNING. WILL ACKNOWLEDGE AND FOLLOW ORDERS.
--- NOTE | 2018-08-13 16:59 | NUR ---
CM ASSESSMENT: CASE OPENED FOR DC PLANNING. CLINICAL INFO REVIEWED. PT JUST DC A COUPLE DAYS AGO AND READMIT WITH ETOH INTOX AND LIVER FAILURE, HEMPOTYSIS. MET WITH PT. SHE IS ALERT AND ORIENTED BUT EMOTIONAL AND ANXIOUS. PT CONFIRMS STILL LIVES AT THE [facility] IN [address] [place] [address] WITH RENT PAID THRU [employer]. PT HAS MEDICAID WITH TRANSPORTATION THRU [facility]. PT RECEIVES $770 MONTHLY DISABILITY CHECK. PT STATES SHE NEEDS AN "ADVOCATE" TO MANAGE HER MONEY SO SHE CAN GET A HOUSE AND A DOG. PT HAS 11 SIBLINGS AND AN ADULT SON AND DTR BUT DOES NOT KNOW WHERE ANY OF THEM LIVE AND HAS NO CONTACT WITH ANY FAMILY. PT HAS BEEN GIVEN COMMUNITY RESOURCES AND SAFETY NET CLINIC RESOURCES MULTIPLE TIMES IN PAST FEW MONTHS BUT HAS NOT ESTABLISHED HERSELF AT A CLINIC. DOES NOT WANT TO QUIT DRINKING ETOH AT PRESENT. SUPPORT OFFERRED WHEN BECOMES EMOTIONAL. PULM CONSULTED FOR HILAR LUNG MASS. NO W/E DC PLANNED.
--- NOTE | 2018-08-13 19:00 | NUR ---
Pt awake and alert all day. Pt restless, impulsive, and fidgity most of the day. Pt would rest quielty for only short periods of time. Morphine and Ativan given for pain/sedation-see emar. Pt has reported only partial pain relief. Sinus tahycardia. Afebrile. Breath sounds clear/diminished. Pt was started on clear liquids and advanced to regular diet. Paracentesis done at the bedside today by Dr Pierson. 6100 ml of fluid reported to have been removed. Specimen was discarded by radiology staff prior to receiving orders to run tests on the fluid. Small amt of drainage on drsg at the paracentesis site. Pt seen today by Dr Trejo regarding lung mass. Fall precautions maintained today. Report given to RN assuming care.
[2018-08-13 20:40] LABS: POTASSIUM 3.9 mmol/L (3.5-5.1)
[2018-08-14] VITALS (18 sets, daily range): BP systolic 91–118; BP diastolic 62–83
[2018-08-14 06:05] LABS: HEMATOCRIT 31.4 % (37.0-47.0); HEMOGLOBIN 10.1 gm/dL (12.0-15.0); MCHC 32.2 g/dL (28.0-37.0); RBC 3.49 mil/uL (4.20-5.00); RDW 15.2 % (10.5-14.5); WBC 17.5 thou/uL (4.0-11.0)
[2018-08-14 06:18] LABS: CALCIUM 7.9 mg/dL (8.5-10.1); CREATININE 1.1 mg/dL (0.6-1.0); POTASSIUM 3.8 mmol/L (3.5-5.1)
[2018-08-14 06:21] LABS: ALBUMIN 1.8 g/dL (3.4-5.0); DIRECT BILIRUBIN 0.3 mg/dL (<0.1-0.3); TOTAL BILIRUBIN 0.4 mg/dL (<0.1-1.0); TOTAL PROTEIN 5.6 g/dL (6.4-8.2)
--- NOTE | 2018-08-14 07:44 | NUR ---
ASSUMED PT CARE AT 1900 WITH REPORT TAKEN. PT IS ALERT AND ORIENTED BUT IS RESTLESS AND AGIATATED, PT IS STABLE. PT IS RESTLESS THROUGHOUT THE NIGHT. SCHEDULED MEDS ADMINISTERED TO PT PT TOLERATED PO INTAKE. VITAL SIGNS STABLE. PT IS SEEMS AGITATED AND REFUSES TO GO TO SLEEP. DRY BOX OPERATOR NOTIFIED AND MEDICATION WAS ORDERED. PT IS STABLE. DENIES ANY FURTHER NEEDS AT THIS TIME.
--- NOTE | 2018-08-14 14:47 | HC ---
[facility] [place] [address] CONSULTATION Name: HALINA Room #: 244-P [facility] IN .R.#: [id number] Admission: 08/12/18 ������������������ Attend Phys: Rukhsana Pierce MD Discharge: ������������������ Date of : 61 Report #: [id number] THIS REPORT FOR: //name// CC: [facility] physician/PCP Rukhsana Pierce REFERRAL PHYSICIAN: Dr. Pierce. REASON FOR REFERRAL: Lung mass. HISTORY OF PRESENT ILLNESS: The patient is a 52-year-old white female who presents to the Emergency Department with complaints of abdominal pain and distention. She has a history of cirrhosis, ascites. CT chest angiogram showed lung mass. A Pulmonary consultation was requested. The patient is known to this physician from a past hospitalization around 05/2018. At that time, she had an abnormal chest CT showing irregular 2.5 x 1.7 x 1.1 cm anterior basal mass involving the right lower lobe. It also showed subcarinal lymphadenopathy, small nodules involving the right upper lobe, measuring less than 1 cm in diameter along with central lobar emphysema. At that time, she was admitted for abdominal issues including alcoholic liver disease and cirrhosis. It was recommended to the patient to be followed up in the office following discharge. However, the patient never followed through. She presents on this admission with increased abdominal pain and distention. She is felt to have recurrent ascites. She is scheduled to undergo paracentesis. She notes weight loss recently. She continues to smoke about a pack a day. She has 2 children she is not close to; they are in their 40s. She lives according to the social service and nursing. She lives in a motel. The patient continues to abuse alcohol. She has had multiple hospitalizations where she left [facility]. She was admitted on several occasions for intoxication with alcohol. PAST MEDICAL HISTORY: As mentioned above, history of alcohol abuse, cirrhosis, ascites, hepatitis C, tobacco abuse, hypertension, chronic pancreatitis and chronic back pain. PAST SURGICAL HISTORY: Status post left knee surgery. ALLERGIES: HALDOL, REACTIONS UNSPECIFIED. MEDICATIONS: Include nicotine patch, clonidine patch, trazodone, lorazepam, Pepcid, vitamin B supplements, thiamin and Aldactone. FAMILY HISTORY: Noncontributory. [facility] [address] [place] [address] CONSULTATION Name: HALINAAugust Room #: 244-P [facility] IN [facility].#: [id number] Admission: 08/12/18 ������������������ Attend Phys: Rukhsana Pierce MD Discharge: ������������������ Date of : 61 Report #: [id number] SOCIAL HISTORY: She is single. She has 2 children. She has a sibling who lives in town. However, she has not been close to any of the children or the family. She has not talked to her children over the last several years. She continues to smoke about a pack a day. She continues to drink alcohol. REVIEW OF SYSTEMS: As mentioned above, with a recent onset of weight loss. PHYSICAL EXAMINATION: GENERAL: She is awake, alert and appears to be coherent, saying that it is 2019. VITAL SIGNS: Temperature is 98 degrees Fahrenheit, pulse is 100, respiratory rate 24, blood pressure 130/91 mmHg and saturation is 94%. HEENT: Normocephalic, atraumatic. NECK: Supple, without lymphadenopathy or thyromegaly. CHEST: Breath sounds are fair bilaterally, without any rales or wheezes. CARDIOVASCULAR: Normal S1, S2. There are no murmurs, rubs or gallop. There is no JVD. There is no carotid bruit. Pulses are 2+/4+ bilaterally. ABDOMEN: Moderately distended. Hepatomegaly is present. No masses felt. It is nontender. GENITOURINARY: Deferred. RECTAL: Deferred. EXTREMITIES: There is no edema, cyanosis or clubbing. LABORATORY DATA: CT chest, as mentioned above, showing a large right hilum, mediastinal mass extending in the right lower lobe with near-complete obstruction of the bronchus intermedius. Reticular nodular infiltrates seen in the right upper lobe with partial right lower lobe atelectasis. CT abdomen and pelvis revealed moderate hepatomegaly, thickening of the cecum and ascending colon and diffuse colitis. Urine drug screen was positive for THC, benzodiazepine and narcotics. Electrolytes are normal, creatinine is normal. WBC 16,300, hemoglobin is normal and platelets are normal. Albumin 1.9. IMPRESSION: 1. Lung mass involving the right hilum, mediastinum, extending to the right lower lobe with small nodules in this 52-year-old white female with long history of tobacco use. 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 Note that the patient had a prior CT chest in May showing abnormalities. 2. Alcohol abuse, cirrhosis, recurrent ascites and history of hepatitis C. 3. Hepatic encephalopathy. 4. Chronic pancreatitis. 5. Polysubstance abuse including alcohol, marijuana and narcotics. 6. Medical noncompliance. 7. Tobacco abuse. 8. Severe protein-calorie malnutrition, with an albumin of 1.9. [facility] [address] [place] [address] CONSULTATION Name: HALINAAugust Room #: 244-P ADM IN [facility].#: [id number] Admission: 08/12/18 ������������������ Attend Phys: Rukhsana Pierce MD Discharge: ������������������ Date of : 61 Report #: [id number] RECOMMENDATIONS AND DISCUSSION: The patient likely has a bronchogenic carcinoma given progression of the lung mass from 05/2018. The patient was advised to be followed up in outpatient following discharge from the hospital, but she failed to do so. She has a difficult problem in that she has polysubstance abuse with alcohol, marijuana and narcotics. She now has worsening liver disease with recurrent ascites. There is also evidence of medical noncompliance. If medically stable, we will try to attempt a bronchoscopy. The patient may need heavy sedation. Risk of the procedure is moderate to high given her underlying comorbid conditions. We will try to attempt to discuss with the patient's children and siblings if possible regarding the above findings. Given her severe comorbid conditions along with polysubstance abuse, especially with advancing liver disease, conservative management may be most appropriate in this patient. Thank you for this consultation. ��������������������������������������������� <ELECTRONICALLY SIGNED> ���������������������������������������� By: Abel Trejo MD ��������������������������������������������� 08/14/18 1447 1417 0213 Abel Trejo MD /nt
--- NOTE | 2018-08-14 18:13 | NUR ---
TO UNIT BY BED FROM ICU AT 1730, REPORT FROM DAYANNA TORRES. ORIENTED TO UNIT, GIVEN HER DINNER TRAY. IVF ORDERED VIA PICC LINE. CLOSE TO NURSES' STATION, BED ALARM ACTIVATED. TELEMETRY ACTIVATED. WILL CONTINUE TO MONITOR.
[2018-08-15 04:14] VITALS: BP 107/75
--- NOTE | 2018-08-15 07:31 | NUR ---
Pt a/o x 4. RA. ST. VSS. CIWA scores 3-6. Impulsive with multiple attempts to get out of bed while alert and oriented. Pt often stated "I want shots (PRN Morphine IV and Ativan IV meds) so I can sleep like a baby... I don't want to wake up..." even when pt in a drowsy state. When pt informed of administration frequency of those "shots" per order, pt became irritable, argumentative and uncoorperative. Pt offered PO pain med for c/o pain this AM, pt refused, stating "It don't work... I don't want it!" Pt infomred of administration time for next dose of "shots". Pt continued to be argumentative and uncoorperative. Pt also refused AM dose of lactulose. Up with assist to BSC. Fall precautions in place. Bed alarm on. Call light within reach. Shift change report completed with incoming day-shift RN's.
[2018-08-15 08:00] VITALS: BP 124/81
[2018-08-15 12:26] LABS: INR 1.3; PROTIME 13.1 Seconds (9.3-11.4)
--- NOTE | 2018-08-15 14:30 | NUR ---
ASSUMED PATIENT CARE AT 0715. A&OX4, SOMEWHAT FORGETFUL. PATIENT VERY FOCUSED ON WHEN PAIN MEDICATION IS DUE. IMPULSIVE. UP WITH ASSIST X1, UNSTEADY. ABDOMEN IS VERY DISTENDED AND HARD. PARACENTISIS TODAY. ONLY ABLE TO PULL OFF 1600 MLS. PATIENT REFUSED LACTULOSE THIS AM FOR NIGHT NURSE. THIS RN DISCUSSED HOW IMPORTANT THAT MEDICATIONS IS FOR PATIENT TO TAKE. CLOSE TO DESK. SLOWLY WORKING TOWARDS GOALS.
[2018-08-15 15:00] VITALS: BP 117/80
[2018-08-15 15:14] LABS: HEMATOCRIT 30.8 % (37.0-47.0); HEMOGLOBIN 10.2 gm/dL (12.0-15.0); MCH 29.3 pg (26.0-34.0); MCV 88.7 fL (80.0-100.0); RBC 3.47 mil/uL (4.20-5.00); RDW 15.2 % (10.5-14.5); WBC 19.4 thou/uL (4.0-11.0)
[2018-08-15 15:23] LABS: CALCIUM 7.9 mg/dL (8.5-10.1); CREATININE 1.1 mg/dL (0.6-1.0)
[2018-08-15 19:49] VITALS: BP 111/80
--- NOTE | 2018-08-16 03:09 | NUR ---
ASSUMED CARE AT 1900. AXOX2. IMPULSIVE AND RESTLESS. PERSISTENT AGITATION AND RESTLESS BY RIPPING PARACENTESIS DRESSING OFF AND GOWN AND BEDDINGS. ADMINISTERED ATIVAN. NO RELIEF. ADMIN MORHPINE FOR PAIN, REPORTS NO RELIEF. CALLED ROLL WINDER MARLA AND ONETIME ORDER OF HYDROZYZINE GIVEN IM. STILL AGITATED. PER ROLL WINDER OK TO SOFT RESTRAINTS IF PT SHOWS BEGAVIOR OF SELF DESTRUCTION. WILL LEAVE RESTRAINTS THE LAST RESULT TO PREVENT PT FROM HARMING HERSELF. WILL CONT TO MONITOR FOR ANY CHANGES IN CONDITION.
[2018-08-16 05:42] VITALS: BP 124/85
[2018-08-16 08:18] VITALS: BP 132/84
[2018-08-16 15:09] VITALS: BP 137/85
--- NOTE | 2018-08-16 18:30 | NUR ---
PT ASSESSED AT START OF SHIFT. MONITORED CLOSELY PT VERY IMPULSIVE AND JUMPS OUT OF BED SPONTANEOUSLY. FALL PRECAUTIONS IN PLACE EXCEPT YELLOW SOCKS PT REFUSING TO WEAR THEM. DR. PRIETO IN THIS AM TO TALK W/ PT RE LUNG NODULES. PT NOT ABLE TO FOLLOW CONVERSATION. CIWA ASSESSMENT DONE AND INCREASED. GI NOTIFIED PT MAY NEED TO BE TRANSFERRED BUT NO ORDER. PT GIVEN IV MORPHINE AND ATIVAN TO HELP W/ DETOX SYMPTOMS. RT ABD PARACENTESIS SITES LEAKING PROFUSELY. SEVERAL DSNG CHANGES. PT INCONTINENT OF LOOSE BM'S IN THE BED. LACTULOSE DECREASED TO DAILY. PT NOT ABLE TO TAKE PO MEDS THIS SHIFT STATING HE STOMACH HURT AND SHE COULDN'T. HAS DRANK SOME BUT NOT EATING.
[2018-08-16 19:39] VITALS: BP 145/96
[2018-08-17 04:48] VITALS: BP 105/70
[2018-08-17 07:00] VITALS: BP 100/74
--- NOTE | 2018-08-17 07:55 | NUR ---
slept small part of shift. ativan and morophine given per orders for agitation and pain. remains impulsive and gets up without calling. bed alarm on at all times, door open for easy view, and watched cloesly. not progressing towards discharge goals at this time. maintain safe environment.
--- NOTE | 2018-08-17 11:12 | NUR ---
ASSUMED CARE 0700. ANXIOUS, RESTLESS, A/OX4, FROM HOME, CIWA IN PLACE, PAIN MANAGED WITH MEDICATIONS, PT REMOVED DRESSING OVER RIGHT SIDE ABD. DRESSING CARE PROVIDED, FALL PRECAUTIONS IN PLACE. PT TURNS OFF ALARMS. DOES NOT USE CALL LIGHT. SEIZURE PRECAUIONS ON BED. PT REFUSES 4 BED RAILS COMPLAINT WITH 3 BED RALES. PT CLOSE TO NURSE STATION FOR OVERSIGHT CARE. AT THIS TIME PATIENT RESTING IN BED WITH ALARM SET. CALL LIGHT IN REACH.
--- NOTE | 2018-08-17 14:46 | NUR ---
ON-GOING ASSESSMENT: CM REVIEWED CHART AND MET WITH PATIENT AT THE BEDSIDE. PT HAS ASCITES AND IS S/P PARACENTESIS. CM DISCUSSED ROLE AND CURRENT LIVING SITUATION. CM DISCUSSED THAT IF PATIENT WERE AGREEABLE TO GOING TO A LTC FACILITY REFERRALS COULD BE SENT TO SEE IF THEY COULD ACCEPT HER. PT DOES ACKNOWLEDGE THAT SHE IS NEEDING MORE HELP THEN USUAL. CM DISCUSSED THE BENEFITS OF A FACILITY AND THEY CAN HELP ASSIST HER. AFTER DISCUSSION PT WAS AGREEABLE FOR A REFERRAL TO BE SENT BUT STATES SHE WILL NEED TO FIND OUT MORE INFORMATION. CM DISCUSSED THAT SOME FACILITIES CAN SEND OUT A LIASON TO DISCUSS WHAT THEY HAVE TO OFFER AT THE FACILITY. PT REPORTS THAT SHE DOES NOT HAVE A PREFERENCE OF FACILITY. CM SPOKE WITH LIASON FROM [facility] WHO STATES THAT THEY A MEDICAID BED AVAILABLE AND WOULD BE ABLE TO REVIEW TO SEE IF THEY CAN ACCEPT PATIENT. CM FAXED REFERRAL TO [facility].
[2018-08-17 21:07] VITALS: BP 110/78
[2018-08-18 03:00] VITALS: BP 126/78
--- NOTE | 2018-08-18 05:54 | NUR ---
SLEPT PART OF SHIFT. REMIANS IMPULSIVE AT TIMES, PATIENT FOLLOWS CONVERSATION BETTER TONIGHT BUT STILL NOT CLEAR ON MEANING. PATIENT STATED SHE NEEDED TO GO TO [facility]ERY STORE TO GET FOOD SO SHE COULD STAY HERE LONGER. WALKED IN [place] X1 FOR AGITATION. MAINTAIN SAFE ENVIRONMENT. WORKING ON GOALS AND PLAN OF CARE FOR NOC. NOT PROGRESSING AT THIS TIME TOWARDS DISCHARGE GOALS. NEEDS FREQUENT REDIRECTION AND REINFORCEMENT ON ACTIVITY, MEDICATIONS AND CARE STATUS. CONTINUE TO ASSES FREQUENTLY.
[2018-08-18 06:08] LABS: ABSOLUTE NEUTROPHILS 17.1 thou/uL (1.4-8.2); BASOPHILS 0.2 % (0.0-2.0); EOSINOPHILS 0.9 % (0.0-3.0); HEMATOCRIT 29.8 % (37.0-47.0); HEMOGLOBIN 9.6 gm/dL (12.0-15.0); LYMPHOCYTES 6.6 % (24.0-44.0); MCH 28.9 pg (26.0-34.0); MCHC 32.3 g/dL (28.0-37.0); MCV 89.3 fL (80.0-100.0); MONOCYTES 7.4 % (1.0-8.0); PLATELET COUNT 212 thou/uL (150-400); POLYS 84.9 % (36.0-66.0); RBC 3.34 mil/uL (4.20-5.00); RDW 15.6 % (10.5-14.5); WBC 20.1 thou/uL (4.0-11.0)
[2018-08-18 06:30] LABS: ALBUMIN 1.7 g/dL (3.4-5.0); CALCIUM 7.9 mg/dL (8.5-10.1); CREATININE 1.3 mg/dL (0.6-1.0); MAGNESIUM 1.6 mg/dL (1.8-2.4); POTASSIUM 4.1 mmol/L (3.5-5.1); TOTAL BILIRUBIN 0.4 mg/dL (<0.1-1.0); TOTAL PROTEIN 5.3 g/dL (6.4-8.2)
[2018-08-18 07:37] VITALS: BP 123/51
--- NOTE | 2018-08-18 07:47 | HC ---
[facility] [place] [address] [place] [address] CONSULTATION Name: HALINA Room #: 462-P ADM IN M.R.#: [id number] Admission: 08/12/18 ������������������ Attend Phys: Rukhsana Pierce MD Discharge: ������������������ Date of : 61 Report #: [id number] THIS REPORT FOR: //name// CC: [facility] physician/PCP Ryan Trejo MD REASON FOR CONSULTATION: Abnormal CAT scan. HISTORY OF PRESENT ILLNESS: The patient is a 52-year-old female, admitted with abdominal pain and ascites with a history of cirrhosis. Dr. Abel Trejo had seen her because several months ago, she had an abnormal CAT scan in May that saw an enlarged subcarinal lymph node and an irregular mass in the right lower lobe measuring 2.5 x 1.7 cm. At that time, they suggested that she should follow up as an outpatient, but she did not follow up. Unfortunately, when she came in this time, the CAT scan shows further enlargement of this and development of lymphadenopathy. Specifically, the mass now in the right hilum and subcarinal region measures 5.2 x 3.5 x 5.6 cm. It surrounds the lower lobe branch of the pulmonary arteries and about the lower lobe branch of the right pulmonary arteries. There is some narrowing of the base of the right pulmonary artery suspected. The previously described right lower lobe mass is not discretely identified. There was interval partial collapse. There is also within the T12 vertebra, a large lytic process that had not been seen before. There is also a smaller one in T10. These are all worrisome for malignancy. Also, note that the CAT scan showed ascites and on top of pulmonary embolic disease. Her abdomen done about the same time showed marked increased amount of ascites, showed hepatic cirrhosis and varicosities and thickened wall gallbladder. The patient at this time is somewhat not clear in her thinking. When asked about whether she would like to do a biopsy, she is unclear about whether she wishes to proceed and talks like she is going to go to [facility] any way. Did offer that if she wishes we can do a biopsy of back to see if she has cancer, so we know whether she does not at this time, she is undecided about whether she would like to do this. I have a very strong concern about whether she would be able to tolerate any therapy such to benefit from it, even if we found cancer, and her support system seems very minimal. I think it would be quite difficult for her to be able to undergo therapy. PAST MEDICAL HISTORY: Notable for history of alcohol abuse, hepatitis C, cirrhosis, ascites, hypertension, tobacco abuse, chronic pancreatitis, chronic back pain. Also had left knee surgery in the past. SOCIAL HISTORY: As mentioned above. Smokes 1/2 pack per day. Alcohol. I think she denied street drugs if I recall, has left AMA from multiple hospitalizations in the past. Had lived in a hotel recently. Does not appear to have a family to help out. She is originally from [place]. [facility] [address] [place] [address] CONSULTATION Name: HALINA Room #: 462-P [facility] IN ..#: [id number] Admission: 08/12/18 ������������������ Attend Phys: Rukhsana Pierce MD Discharge: ������������������ Date of : 61 Report #: [id number] LABORATORY DATA: Includes a BUN of 10, creatinine 1.1, AST 121, lipase was 494, total bilirubin 0.4, alkaline phosphatase 126, SGPT 65. Albumin 1.8. Ammonia this admit had been 74. Alcohol recently on admit had been 111, other times it has been 389, 249, 137. Coags this admit had been with an INR of 1.3. WBC had been 19.4, hemoglobin 10.2, RDW 15.2, platelets 186. TSH 5.278, folate 9.6 in June. Vitamin B12 of 713 in June. PHYSICAL EXAMINATION: GENERAL: The patient appears her stated age. She is a poor historian. She is in bed moving around. Sometimes answers questions, sometimes drifts off. HEENT: Face appears symmetrical. LUNGS: Have some slight rhonchi in the bases. No definite wheezes. HEART: Regular rate. No definitely enlarged lymph nodes in the supraclavicular, cervical, axillary or inguinal region. ABDOMEN: Protuberant consistent with ascites. EXTREMITIES: With some trace edema. No clubbing or cyanosis. MEDICATIONS: Currently include furosemide 20 daily, lactulose 20 grams daily, pantoprazole 40 daily IV, vancomycin 1 gram q.12, nicotine patch 21 mg daily, vitamin daily, thiamine 100 mg daily, rifaximin 550 b.i.d., spironolactone 50 daily, hydrocodone p.r.n., morphine p.r.n., guaifenesin extended release p.r.n., Zosyn 3.375 grams q.8, ipratropium, albuterol inhalation therapy q.4. Lorazepam 1 gram q.4 p.r.n., flumazenil 0.2 mg, levofloxacin q.24, Zofran p.r.n. ASSESSMENT AND PLAN: 1. Progressive right lung lesion with mediastinal narrowing of the airways and probable lytic changes at T10, strongly suspicious for bronchogenic carcinoma. Given the patient's performance status and lack of support, I doubt she would be able to tolerate therapy. Given that I think we will have to weigh the potential benefit of a diagnosis versus the side effects of the patient. If tissue was desired, would consider T10 biopsy. 2. Mentation may be from alcohol use or other medications, could also consider brain imaging given what appears to be newly metastatic disease. 3. Cirrhosis and encephalopathy. Defer meds to others. 4. Possible infection and antibiotics per others. 5. Hypertension. Meds per others. We will be available. ��������������������������������������������� <ELECTRONICALLY SIGNED> ���������������������������������������� By: Jayesh Aponte MD ��������������������������������������������� 08/18/18 0747 0829 0927 Jayesh Aponte MD /nt
[2018-08-18 17:00] VITALS: BP 113/71
--- NOTE | 2018-08-18 17:43 | NUR ---
ASSUMED CARE 0700. VSS, PAIN AND ANXIETY MANAGED WITH MEDICATION, IMPULSIVE, REINFORCE THE USE OF CALL LIGHT FOR ASSISTANCE. DRESSING CHANGED DUE TO SATURATION 3X. SEEN BY DR LEE TODAY AND IS EXCEPTING TO HOSPICE AT THIS TIME. CASE MANAGEMENT WORKING ON IOS DEVELOPER CARE PLACEMENT. PT WAS COMPLIANT WITH FLUID RESTICTIONS AT 1200 BY DINNER HOUR. FALL PRECAUTIONS IN PLACE.
[2018-08-18 21:06] VITALS: BP 119/70
[2018-08-19 07:20] VITALS: BP 110/77
[2018-08-19 09:41] LABS: HEMATOCRIT 31.2 % (37.0-47.0); HEMOGLOBIN 10.4 gm/dL (12.0-15.0); MCH 29.3 pg (26.0-34.0); MCHC 33.4 g/dL (28.0-37.0); MCV 87.6 fL (80.0-100.0); PLATELET COUNT 232 thou/uL (150-400); RBC 3.57 mil/uL (4.20-5.00); RDW 15.4 % (10.5-14.5); WBC 19.3 thou/uL (4.0-11.0)
[2018-08-19 09:53] LABS: ALBUMIN 1.9 g/dL (3.4-5.0); CALCIUM 8.2 mg/dL (8.5-10.1); CREATININE 1.2 mg/dL (0.6-1.0); POTASSIUM 3.7 mmol/L (3.5-5.1); TOTAL BILIRUBIN 0.5 mg/dL (<0.1-1.0); TOTAL PROTEIN 5.4 g/dL (6.4-8.2)
[2018-08-19 10:02] LABS: MAGNESIUM 1.7 mg/dL (1.8-2.4)
[2018-08-19 10:06] LABS: ABSOLUTE NEUTROPHILS 15.6 thou/uL (1.4-8.2); PLATELET ESTIMATE NORMAL
--- NOTE | 2018-08-19 11:50 | NUR ---
ASSUMED CARE 0700. AWAKE AND ANXIOUS FROM [id number]. PAIN AND ANXIETY MANAGED WITH MEDICATIONS.PT HAD CAUGHT IV LINE IN BED RAILS. BLOOD UNDER DRESSEING. DRESSING REPLACED BY DIE MAKER BENCH STAMPING AND CLINICAL INSTRUCTOR, PICC LINE STABLE CONDITION WITH GOOD FLUSH AND BLOOD RETURN. PT CALM AT THIS MOMENT AND RESTING IN BED. REMAINS ON FLUID RESTRICTIONS. PT REMOVED DRESSING FROM PARATHENSIS AREA.NOT DRAINING AT THE MOMENT. FALL PRECAUTIONS IN PLACE. CALL LIGHT IN REACH.
[2018-08-19 12:51] LABS: INR 1.1
[2018-08-19] MEDS ORDERED: NICOTINE TRANSD21 M1 TRANSDERM (15:13)
[2018-08-19] MEDS ORDERED: IPRAT-ALBUT 0.5-3 ML INH (15:13)
[2018-08-19] MEDS ORDERED: TRAZODONE HCL50 MG PO (15:13)
[2018-08-19] MEDS ORDERED: LACTULOSE20 GM/30 M PO (15:13)
[2018-08-19] MEDS ORDERED: LASIX 20 MG TAB20 MG PO (15:13)
[2018-08-19] MEDS ORDERED: PRENATAL PO (15:13)
[2018-08-19] MEDS ORDERED: ALDACTONE50 MG PO (15:13)
[2018-08-19] MEDS ORDERED: LORAZEPAM I2 MG/1 M2 SUBLING (15:13)
[2018-08-19] MEDS ORDERED: HYDROXYZINE HCL25 M1 PO (15:13)
[2018-08-19] MEDS ORDERED: VITAMIN B-1100 M2 PO (15:13)
[2018-08-19] MEDS ORDERED: NORCO 7.5-3251 EACH PO (15:13)
[2018-08-19] MEDS ORDERED: LIDOPATCH1 EACH TRANSDERM (15:13)
[2018-08-19] MEDS ORDERED: MUCINEX600 MG PO (15:13)
[2018-08-19] MEDS ORDERED: XIFAXAN550 MG PO (15:13)
--- NOTE | 2018-08-19 16:58 | NUR ---
ASSUMED CARE OF PT AROUND 1500 TODAY . PT WAS SCHEDULED TO HAVE PARACENTESIS THIS AFTERNOON. PT RREFUSED TO HAVE PROCEDURE DONE. PT ALERT AND ORIENTED TIMES FOUR, VSS. DISCHARGE ORDERS WRITTEN ON PT THIS AFTERNOON TO TRANSFER TO [facility] AT 1730PM. THIS NURSE CALL [facility] [phone] TO GIVE REPORT AT 1650 NO RESPONSE FROM JAIL. WILL TRY AGAIN LATER.
--- NOTE | 2018-08-19 17:05 | NUR ---
on-going assessment: CM REVIEWED CHART AND MET WITH PATIENT AT THE BEDSIDE. PT IS AGREEABLE WITH GOING TO LTC FACILITY AND REPORTS THE LIASON MET WITH HER YESTERDAY. CM SPOKE WITH LIASON NANY FROM [facility] WHO STATES THEY CAN ACCEPT PATIENT TO [facility]ITENTIARY CARE. CM NOTIFIED LIASON PATIENT IS INTERSTED IN HOSPICE AND WANTING AN INFO VISIT/EVAL. LIASON STATING THEY CAN DO THE INFO/HOSPICE EVAL AT THE FACILITY ONCE SHE GETS THERE. CM NOTIFIED PATIENT AND SHE IS AGREEABLE. PT WAS TO HAVE PARACENTESIS THEN GO TO LTC FACILITY BUT PER BEDSIDE RN PT REFUSED THE PARACENTESIS. CM MET WITH PATIENT AND DISCUSSED DISCHARGE ORDERS WERE FOR TODAY TO LTC AND HOSPICE EVAL AND INFO VISIT WOULD BE ARRANGE THERE. PT AGREEAble. [facility] LIASON ARRANGED TRANSPORTATION FOR 1730. CM NOTIFIED BEDSIDE RN AND PT. CHART COPY WAS ORDERED. CM NOTIFIED BEDSIDE RN OF THE NUMBER FOR REPORT. PT REPORTS NO FURTHER QUESTIONS FROM CM AT THIS TIME.
== END 2018-08-19 18:20 | DRG 871 ==
LOC: ER 17:47 → ICU 23:41 → EROBS 23:41 → ICU 08-13 01:18 → 4W 08-14 17:39
PROVIDERS: Emergency Medicine; Internal Medicine; Internal Medicine Gastroenterology; Internal Medicine Pulmonary Disease; Nurse Practitioner; Nurse Practitioner Family; ADMIT Internal Medicine
DX: A41.9 Sepsis, unspecified organism (principal); K65.2 Spontaneous bacterial peritonitis; J18.9 Pneumonia, unspecified organism; E43 Unspecified severe protein-calorie malnutrition; K92.0 Hematemesis; K86.1 Other chronic pancreatitis; F10.129 Alcohol abuse with intoxication, unspecified; K70.31 Alcoholic cirrhosis of liver with ascites; Z66 Do not resuscitate; B18.2 Chronic viral hepatitis C; F41.9 Anxiety disorder, unspecified; I10 Essential (primary) hypertension; K72.10 Chronic hepatic failure without coma; F17.210 Nicotine dependence, cigarettes, uncomplicated; Y90.9 Presence of alcohol in blood, level not specified; I86.8 Varicose veins of other specified sites; Z51.5 Encounter for palliative care; G89.4 Chronic pain syndrome; L29.9 Pruritus, unspecified; F12.10 Cannabis abuse, uncomplicated; F11.10 Opioid abuse, uncomplicated; R91.8 Other nonspecific abnormal finding of lung field; M89.9 Disorder of bone, unspecified; R91.1 Solitary pulmonary nodule; K21.9 Gastro-esophageal reflux disease without esophagitis; M54.9 Dorsalgia, unspecified; Z79.899 Other long term (current) drug therapy; Z91.19 Patient's noncompliance with other medical treatment and regimen; Z79.1 Long term (current) use of non-steroidal anti-inflammatories (NSAID); Z68.23 Body mass index [BMI] 23.0-23.9, adult
CPT/HCPCS: 10045; 10047; 10078; 27000

== ENCOUNTER 2018-08-21 23:43 | Inpatient (IN) | payer OTHER ==
[~2018-08-21] VITALS: Ht 160 cm; Wt 57.9 kg
[~2018-08-21 23:43] MED LIST changes: +ALDACTONE50 MG PO; +HYDROXYZINE HCL25 M1 PO; +IPRAT-ALBUT 0.5-3 ML INH; +LASIX 20 MG TAB20 MG PO; +LIDOPATCH1 EACH TRANSDERM; +LORAZEPAM I2 MG/1 M2 SUBLING; +MUCINEX600 MG PO; +NICOTINE TRANSD21 M1 TRANSDERM; +NORCO 7.5-3251 EACH PO; +PRENATAL PO; +XIFAXAN550 MG PO
[2018-08-21 23:45] VITALS: BP 147/96
--- NOTE | 2018-08-22 01:17 | NUR ---
MULTIPLE IV ATTEMPTS ON L ARM UNSUCCESSFULL
[2018-08-22 03:03] LABS: HEMATOCRIT 35.7 % (37.0-47.0); HEMOGLOBIN 11.8 gm/dL (12.0-15.0); MCH 29.1 pg (26.0-34.0); MCHC 32.9 g/dL (28.0-37.0); MCV 88.6 fL (80.0-100.0); PLATELET COUNT 263 thou/uL (150-400); RBC 4.03 mil/uL (4.20-5.00); RDW 15.5 % (10.5-14.5); WBC 18.4 thou/uL (4.0-11.0)
[2018-08-22 03:19] LABS: CALCIUM 8.7 mg/dL (8.5-10.1); CREATININE 1.4 mg/dL (0.6-1.0); POTASSIUM 3.1 mmol/L (3.5-5.1)
[2018-08-22 03:25] LABS: ALBUMIN 2.2 g/dL (3.4-5.0); DIRECT BILIRUBIN 0.2 mg/dL (<0.1-0.3); TOTAL BILIRUBIN 0.4 mg/dL (<0.1-1.0); TOTAL PROTEIN 6.3 g/dL (6.4-8.2)
[2018-08-22 03:53] LABS: ABSOLUTE NEUTROPHILS 15.6 thou/uL (1.4-8.2); MYELOCYTES 2 %
[2018-08-22 04:59] VITALS: BP 158/99
[2018-08-22 05:47] VITALS: BP 152/97
[2018-08-22 07:08] LABS: APTT 23.6 Seconds (24.5-32.8); INR 1.1; PROTIME 11.3 Seconds (9.3-11.4)
[2018-08-22 07:17] VITALS: BP 117/87
--- NOTE | 2018-08-22 07:30 | NUR ---
assumed care of patient at 0550. patient is alert and oreinted. patient requested breathing treatment. treatments ordered. patient is npo. patient is missing iv mult attempts made with no success. patient stated last drink was at 0400 this morning. patient is mildly anxious. patient is settled and passed to day shift. wcm.
[2018-08-22 11:01] VITALS: BP 136/78
--- NOTE | 2018-08-22 13:08 | NUR ---
VASCULAR ACCESS CONSULT FOR ML FOR IVF. PT WAS RECENTLY HERE FOR SAME ISSUES AND HAS DEPLETED VESSELS. LUABRACHIAL ACCESSED WITH US AND A 4FRSLML PLACED. SEE INSERTION FOR DETAILS
[2018-08-22 15:14] VITALS: BP 113/67
--- NOTE | 2018-08-22 16:45 | NUR ---
care of pt assumed this am @ ~0700. pt noted to be drowsy and in and out of sleep this am. pt denies co soa and no n/v/d today, although lactolose begun w/ one loose stool late afternoon. pt w/ a balanced, coordinated but unsteady gait, use of gait belt and bsc. pt npo this am, but regular diet for lunch (w/ poor appetite, pt mainly thirst vs. hungry). iv access obtained (midline to lt ue) via iv team. iv antibiotics & KCL replacement started. pt co of lower back discomfort #7-8/10 today w/ discomfort relief/sleeping from po and iv pain medication. dr. puente request that iv hydromorphone be used only for break through pain. pt aware of impending us paracentesis tomorrow (dr. kang).
[2018-08-22 20:35] VITALS: BP 121/84
[2018-08-23 03:35] VITALS: BP 110/78
--- NOTE | 2018-08-23 04:14 | NUR ---
PATIENT IS ALERT AND ORIENTED. BUT VERY FORGETFUL. PATIENTS PAIN IS CONTROLLED. PATIENT IS INCONTIENT. PATIENT IS PENDING A PARATHENTESIS TODAY. PAIENT IS ST ON TELE. PATIENT IS SBA. CIWA IS FROM 0 TO 5. PATIENT NEEDS LOVENOX ORDERED FOR AFTER PROCEDURE. PATIENT IS PENDING DISCUSION WITH CM TODAY ABOUT HOSPICE. PATIENT IS ROOM AIR. RESTING COMFORTABLY IN BED. WCM.
[2018-08-23 07:29] VITALS: BP 122/91
[2018-08-23 11:46] LABS: COLOR YELLOW; SOURCE ABDOMINAL; TOTAL VOLUME 62 mL
[2018-08-23 11:47] LABS: CLARITY SLIGHTLY CLOUDY; SOURCE ABDOMINAL
[2018-08-23 11:51] LABS: BF NUCLEATED CELLS 107; BF RBC 273
--- NOTE | 2018-08-23 12:50 | NUR ---
ASSESSMENT: CM REVIEWED CHART AND MET WITH PATIENT AT THE BEDSIDE. PT WAS JUST RECENTLY HERE AT [facility] AND DISCHARGED 08/19 REFUSING TO GO TO [facility] ([facility] WITH HOSPICE) THAT WAS ARRANGED FOR HER. PT WAS AGREEABLE THAT DAY AND THEN ONCE TRANSPORTATION ARRAIVED REFUSED TO GO. PT STATES SHE WENT TO STAY WITH A FRIEND. PT HAS HX OF DRUG/ALCOHOL USE AND NONCOMPLIANCE. PT IS NOW BACK IN THE HOSPITAL AND STATES SHE IS WILLING TO GO TO LTC FACILITY WITH HOSPICE INFO VISIT/EVAL. CM DISCUSSED CM COULD CONTACT LIASON AGAIN AT [facility] TO SEE IF THEY COULD ACCEPT PATIENT AT THAT LOCATION OR ALSO THEIR LOCATION IN [place]. PT WAS AGREEABLE. CM FAXED REFERRAL TO NANY AT [facility] WHO IS GOING TO SEE IF THEY CAN ACCEPT PATIENT AT EITHER FACILITY. CM WILL CONTINUE TO FOLLOW TO ASSIST NEEDED.
[2018-08-23 13:01] LABS: BF MACROPHAGE 19; BF NEUTROPHILS 12
--- NOTE | 2018-08-23 18:41 | NUR ---
DISHARGED TO [facility] IN [place] FOR HOSPICE. WENT TO IR FOR A PARACENTESIS 5600 REMOVED. LEFT UPPER ARM MIDLINE CATH INTACT AND FLUSHES WELL. UP TO COMMODE WITH SBA. AA0X3 CONTINUES TO BE VERY ANXIOUS CONSTANTLY ASKING FOR PAIN MEDICAITONS. NO C/0 NAUSEA.
[2018-08-24 12:09] LABS: BODY FLUID ALBUMIN 0.4 g/dL (()); BODY FLUID AMYLASE 80 U/L (()); BODY FLUID GLUCOSE 131 mg/dL (()); BODY FLUID LDH 69 IU/L (()); BODY FLUID PROTEIN 1.1 g/dL (())
--- NOTE | 2018-08-25 11:07 | PATH ---
[facility] [address] [place] [address] PATHOLOGY RPT PROCEDURE Name: HALINAAugust Room #: 351-P [facility] IN M.R.#: [id number] ������������������ Admission: 08/22/18 ������������������ Date of : 61 Discharge: 08/23/18 Report #: [id number] Path Case #: [id number] Note [facility] Accession Number: [id number] TESTS RESULT FLAG UNITS REF RANGE LAB Clinician Provided Cytology Information No. of containers..01 Other (Miscellaneous) Source: ABDOMINAL FLUID DIAGNOSIS: 02 ABDOMINAL FLUID NEGATIVE FOR MALIGNANT CELLS. REACTIVE MESOTHELIAL CELLS ARE PRESENT. THIS INTERPRETATION INCLUDES EVALUATION OF A CELL BLOCK. Comment: Examination shows groups of cells in close association with chronic inflammatory cells. Immunohistochemical stains are performed on [facility] cell block. The cells are reactive to calretinin and desmin. The cells are non-reactive to BerEP4. Findings are consistent with reactice mesothelial cell groups associated with inflammation. Pathologist ICD10: 02 K71.9 Signed out by: Ivana Joiner MD, Pathologist NPI- [id number] Performed by: Roberto Smith, Dcs Engineer ([facility]) Gross description: 01 30ML, YELLOW, CLEAR /LCS FLAG LEGEND: L-Low Normal,H-High Normal,LL-Alert Low,HH-Alert High <-Panic Low,>-Panic High,A-Abnormal,AA-Critical Abnormal Performed at: 01 [facility] [address] [place] [address] Josiah Weir MD, [address] [address] Louise Joiner MD, Specimen Comment: A courtesy copy of this report has been sent to Specimen Comment: [phone]. Specimen Comment: Report sent to Performed at: [address] [address] PATHOLOGY RPT PROCEDURE Name: HALINAAugust Room #: 351-P DIS IN M.R.#: [id number] ������������������ Admission: 08/22/18 ������������������ Date of : 61 Discharge: 08/23/18 Report #: [id number] Path Case #: [id number] [facility] [address], [place], [place] [id number] MD Josiah Weir MD Phone: [phone]
== END 2018-08-23 18:14 | disposition hospice, inpatient (51) | DRG 872 ==
LOC: ER 23:43 → 3W 08-22 04:58 → EROBS 08-22 04:58 → 3W 08-22 06:24
PROVIDERS: Emergency Medicine; Nurse Practitioner Acute Care; ADMIT Hospitalist
PROC: 0W9G3ZZ Drainage of Peritoneal Cavity, Percutaneous Approach (ICD-10-PCS; principal; 2018-08-23)
DX: A41.9 Sepsis, unspecified organism (principal); N17.9 Acute kidney failure, unspecified; K86.1 Other chronic pancreatitis; K72.90 Hepatic failure, unspecified without coma; I10 Essential (primary) hypertension; B19.20 Unspecified viral hepatitis C without hepatic coma; R91.8 Other nonspecific abnormal finding of lung field; F10.10 Alcohol abuse, uncomplicated; E87.6 Hypokalemia; K74.60 Unspecified cirrhosis of liver; F17.210 Nicotine dependence, cigarettes, uncomplicated; Z79.899 Other long term (current) drug therapy
CPT/HCPCS: 10879; 27000

== ENCOUNTER 2018-08-27 20:06 | Inpatient (IN) | payer OTHER ==
[~2018-08-27] VITALS: Ht 162.6 cm; Wt 65.7 kg
--- NOTE | ~2018-08-27 | HC ---
[facility] [address] [place] [address] CONSULTATION Name: HALINA Room #: 351-P ADM IN M.R.#: [id number] Admission: 08/27/18 ������������������ Attend Phys: Tristin Meyers MD Discharge: ������������������ Date of : 61 Report #: [id number] THIS REPORT FOR: //name// CC: Tristin Meyers MD [facility] physician/PCP REQUESTING PHYSICIAN: Dr. Tristin Meyers. CHIEF COMPLAINT: End-stage liver disease. HISTORY OF PRESENT ILLNESS: The patient is a 52-year-old female who presented on 08/27/2018, has had recurrent admissions secondary to end-stage liver disease, has had recurrent ascites. She has alcoholic cirrhosis, hepatitis C as well, has chronic drug abuse. She was living with her friend apparently and had hospice care services, sounds like she had a [facility] Prior to this; however, the patient is not able to elicit further for me and was not even able to give me the hospice provider that she was with. She did state that she was with her friend. Unfortunately, again the patient was also to be discharged to long-term facility, but this apparently led to living with her friend. She does not have close family members. She does not have an established durable power of relay man and again at the current interview has significant delirium or at least refusal to answer many questions. She is not following instructions to open her eyes at times, answers few questions only. Continues to report abdominal pain. She again has had multiple paracentesis recently including on 08/10/2018, 08/13/2018, 08/15/2018 and 08/23/2018. In addition, the patient has a history of possible lung cancer with bone metastasis. Again overall, she is not a candidate for a liver transplant and therefore, we have been searching to have her pursue palliative care. There has been some concern for spontaneous bacterial peritonitis. She is currently on Zosyn. They are planning a paracentesis potentially. She had also had acute pancreatitis. PAST MEDICAL HISTORY: History of hepatitis C, multidrug abuse, tobacco use, alcohol abuse, end-stage liver disease, chronic pancreatitis, possible lung cancer with metastasis, anxiety, and chronic pain. FAMILY HISTORY: Noncontributory to current medical concerns. ALLERGIES: No known drug allergies. MEDICATIONS: Previously on rifaximin, DuoNeb, Aldactone, [place], trazodone, Vistaril, thiamine, vitamin, Mucinex, Lasix 20 mg, lactulose, Ativan. PAST SURGICAL HISTORY: Left knee surgery. SOCIAL HISTORY: Current every day smoker. Again, social history as per HPI. Does not have a current DPOA, was currently living with a friend. Apparently [address] [address] CONSULTATION Name: HALINA Room #: 351-P [facility] IN M.R.#: [id number] Admission: 08/27/18 ������������������ Attend Phys: Tristin Meyers MD Discharge: ������������������ Date of : 61 Report #: [id number] did have [facility] services. Again, history of multidrug abuse. REVIEW OF SYSTEMS: Difficult to obtain at this time. Does admit to abdominal pain. Denies nausea. Denies shortness of breath. PHYSICAL EXAMINATION: VITAL SIGNS: Included temperature 36.4, pulse was 125, respiratory rate 14, blood pressure 121/83, 95% oxygen saturation. GENERAL: The patient appeared to be drowsy on exam, either refusing or was not able to due to delirium and poor attention, answer questions. CARDIOVASCULAR: Tachycardic rate. RESPIRATORY: Diffusely clear at this time. ABDOMEN: Diffuse distention noted, tenderness to palpation throughout, although it did not appear to be severe. LABORATORY DATA: Reviewed results include a white blood cell 23,000, hemoglobin 11.1. Additionally, creatinine 1.7, lipase found to be 1073. AST and ALT elevated. INR 1.2. ASSESSMENT AND PLAN: 1. End-stage liver disease. At this point in time, she is not a candidate for transplantation. Did attempt to discuss extensively with her, but unfortunately, she may have hepatic encephalopathy versus delirium due to other condition such as spontaneous bacterial peritonitis. I will continue to follow. I have discussed with social work at this time that she may need a guardian to be established. Certainly, she has difficulty making her own decisions prior to this even with my previous discussions, although certainly at this point in time, it is difficult to say whether or not this is due to refusal or simply delirium. Would continue to follow and see if this resolves. 2. Hepatic encephalopathy versus delirium. Again, this is affecting my overall consultation ability, though certainly, we need to follow and see if she needs guardianship. 3. Possible spontaneous bacterial peritonitis, again affecting her overall prognosis. 4. Acute kidney injury appears to be stabilizing at this point in time. I will again continue to follow along with the patient and see if she has improvement in her overall mentation in order to determine what her plan of action is. Thank you very much for the consultation. ��������������������������������������������� ���������������������������������������� By: ��������������������������������������������� [address]1 [address], /nt
[2018-08-27 23:09] VITALS: BP 140/104
[2018-08-27] MEDS ORDERED: ATIVAN1 MG PO (23:45)
[2018-08-28 04:30] VITALS: BP 119/84
--- NOTE | 2018-08-28 04:53 | NUR ---
ADMISSION NOTE: PATIENT ALERT TO ONLY SELF AND PLACE, VERY FORGETFUL AND DEMANDING. SHE IS RESTLESS AND WILLEASILY GET OUT OF BED. PLACED HER NEAR NURSES STATION FOR HER SAFETY. IV FLUIDS AND ANTIBIOTICS INFUSING. CAREPLAN INITIATED.
[2018-08-28 06:07] LABS: ALBUMIN 2.2 g/dL (3.4-5.0); CALCIUM 8.9 mg/dL (8.5-10.1); CREATININE 1.7 mg/dL (0.6-1.0); POTASSIUM 5.8 mmol/L (3.5-5.1)
[2018-08-28 06:39] LABS: TOTAL PROTEIN 7.1 g/dL (6.4-8.2)
[2018-08-28 08:35] VITALS: BP 126/94
[2018-08-28 11:10] LABS: HEMATOCRIT 37.6 % (37.0-47.0); HEMOGLOBIN 12.2 gm/dL (12.0-15.0); MCH 28.1 pg (26.0-34.0); MCHC 32.4 g/dL (28.0-37.0); MCV 86.9 fL (80.0-100.0); RBC 4.33 mil/uL (4.20-5.00); RDW 15.7 % (10.5-14.5)
[2018-08-28 11:29] LABS: INR 1.2; PROTIME 12.4 Seconds (9.3-11.4)
[2018-08-28 12:18] VITALS: BP 121/89
[2018-08-28 14:27] LABS: URINE BILIRUBIN NEGATIVE (Negative); URINE BLOOD NEGATIVE (Negative); URINE CLARITY CLEAR; URINE COLOR YELLOW; URINE GLUCOSE-RANDOM* NEGATIVE (Negative); URINE KETONES NEGATIVE (Negative); URINE LEUKOCYTES-REFLEX TRACE (Negative); URINE NITRITE-REFLEX NEGATIVE (Negative); URINE PROTEIN (DIPSTICK) NEGATIVE (Negative); URINE SPECIFIC GRAVITY 1.015 (1.005-1.035); URINE UROBILINOGEN 0.2 E.U./dl (0.2-1.0)
[2018-08-28 15:57] VITALS: BP 126/97
--- NOTE | 2018-08-28 18:17 | NUR ---
ASSUMED PATIENT CARE AT 0700. A/O X2-3. CONFUSED, AGIATED AND RESTLESS ON BED. C/O AND PAIN. STARTED DRE RESTRAINT ON 1015. VSS. POOR APPETITE. LOOSE STOOL. NOT TOWARDS POC GOALS.
[2018-08-28 19:47] VITALS: BP 135/100
--- NOTE | 2018-08-29 02:28 | NUR ---
ASSUMED CARE AROUND 190. AXOX2. ON NON VIOLENT SOFT BILATERAL WRISTS RESTRAINTS. PT VERY IMPULSIVE TO REMOVE MEDICAL DEVICES AND TRIES TO GET UP WITHOUT CALLING FOR HELP OR SUPERVISION. FREQUENT CHECK RENDERED. Q2 HOUR ASSESSMENT OF THE RESTRAINTS AND RELIEFS OF THE RESTRAINTS. PT STILL TRIES TO GET OUT OF THE RESTRAINTS. RE-ORIENTAION AND RE-EDUCATION PROVIDED. STILL VERY UNACCEPTING OF THE CARE. PAIN AND ANXIETY MANAGED PER MD ORDER. NEEDS FOR ELIMINATION MET BY REMOVING THE RESTRAINTS AND HAVE THE PT USE THE BEDSDIE COMMODE. VERY RESTLESS AND AGITATED. ABD VERY LARGE.DISTENDED AND FIRM. TACHYCARDIA. NO S/S ACUTE DISTRESS NOTED OR REPORTED AT THIS TIME. WILL CONT TO MONITOR FOR ANY CHANGES IN CONDITION.
[2018-08-29 03:27] VITALS: BP 147/108
[2018-08-29 07:35] VITALS: BP 132/95
[2018-08-29 11:47] LABS: HEMATOCRIT 34.4 % (37.0-47.0); HEMOGLOBIN 11.1 gm/dL (12.0-15.0); MCH 28.3 pg (26.0-34.0); MCHC 32.3 g/dL (28.0-37.0); MCV 87.6 fL (80.0-100.0); PLATELET COUNT 276 thou/uL (150-400); RBC 3.93 mil/uL (4.20-5.00); RDW 15.4 % (10.5-14.5); WBC 23.5 thou/uL (4.0-11.0)
[2018-08-29 12:01] LABS: ALBUMIN 1.9 g/dL (3.4-5.0); CALCIUM 8.2 mg/dL (8.5-10.1); CREATININE 1.8 mg/dL (0.6-1.0); POTASSIUM 3.7 mmol/L (3.5-5.1); TOTAL BILIRUBIN 0.7 mg/dL (<0.1-1.0); TOTAL PROTEIN 5.7 g/dL (6.4-8.2)
[2018-08-29 12:14] VITALS: BP 130/76
[2018-08-29 12:15] LABS: ABSOLUTE NEUTROPHILS 21.2 thou/uL (1.4-8.2)
[2018-08-29 12:16] LABS: ANISOCYTOSIS 1+; POLYCHROMASIA OCCASIONAL
--- NOTE | 2018-08-29 12:31 | NUR ---
VASCULAR ACCESS CALLED TO ASSIST LAB FOR BL DRAWS ON PT. DR GALLEGO IN GAVE LAB ORDER TO DRAW FROM FEET, LAB STILL UNABLE. DISCUSSED OPTIONS WITH DR GALLGEO. [facility]LINE NO LONGER DRAWS LABS. PICC LINE ORDERED. MAX BARRIER PRECAUTIONS,1% LIDOCAINE TO ANATOLIY,BRACHIAL WIDELY PATENET WITH USG. 4FR SL POWER PICC TRIMMED TO 40CM INSERTED TO 2CM EXTERNAL. STAT CXR CONFIRMED PLACEMENT. PICC RELEASED FOR IMMEDIATE USE PER PROTOCOL TO GILA ALAN
--- NOTE | 2018-08-29 14:32 | HC ---
[facility] [place] [address] CONSULTATION Name: HALINAAugust Room #: 351-P [facility] IN M.R.#: [id number] Admission: 08/27/18 ������������������ Attend Phys: Ancelmo Barakat MD Discharge: ������������������ Date of : 61 Report #: [id number] THIS REPORT FOR: //name// CC: [facility] physician/PCP Ancelmo Trejo MD GASTROINTESTINAL CONSULTATION REASON FOR CONSULTATION: The patient is a 52-year-old woman who was transferred from [facility] with liver disease, ascites and possible hematemesis. HISTORY OF PRESENT ILLNESS: This 52-year-old woman unfortunately has a longstanding history of alcohol abuse. She was just recently discharged from [facility] several days ago and apparently, she was seen at [facility] and thus report and records of hematemesis. However, the patient says she has not had any nausea, vomiting, or black stools. Nursing staff reports they had not observed any hematemesis. The patient was discharged to [facility] little least several days ago. According to nursing staff after she was discharged, she started drinking once again. At this time, she is lethargic. She does arouse. She talks very little. She does report that she "does not feel well." When asked about abdominal pain, she admitted abdominal pain. Otherwise, minimal history can be obtained at this time. In addition to the above, she has a history of pancreatitis. I do not find much in the record regarding recent problems with pancreatitis. She did have a CAT scan here at this institution earlier this year and a definite pancreatic lesion was not described. However, it was a noncontrast CT. In addition to her alcohol abuse, there is apparently a history of use of recreational drugs and also she does have a history of hepatitis C. From old notes, she was drinking a pint of vodka daily. She has had problems with ascites and has had multiple paracentesis done in the past and sometimes greater than 5 liters have been removed. In addition, she has a right lower lobe lung lesion. She was evaluated by Dr. Aponte in July of this year. There has been an increased size of this lobe. There is also evidence of adenopathy. There is also a vertebral lytic process at T12 and T11 suggestive of metastatic disease. Apparently, she was to have followup, but does not do so. PAST MEDICAL HISTORY: Alcohol abuse, chronic hepatitis C, cirrhosis, ascites, high blood pressure, long-term cigarette smoker. Note of chronic pancreatitis, which I have no information. There is also history of chronic pain and she has [address] [address] CONSULTATION Name: HALINA Room #: 351-P [facility] IN ..#: [id number] Admission: 08/27/18 ������������������ Attend Phys: Ancelmo Barakat MD Discharge: ������������������ Date of : 61 Report #: [id number] had left knee surgery in the past. ALLERGIES: No known drug allergies. MEDICATIONS: Usual home medications include albuterol ipratropium inhalation every 4 hours, furosemide 20 mg daily, Lidoderm patch transdermally daily, Mucinex 600 mg twice daily, hydrocodone one every 4 hours as needed, hydralazine 25 mg as needed for itching, lactulose 20 grams daily, Ativan 1 mg daily, transdermal nicotine patch. vitamins, Xifaxan 550 mg twice daily, spironolactone 50 mg twice daily, thiamine 100 mg daily, and trazodone 50 mg at bedtime. FAMILY HISTORY: Unknown. SOCIAL HISTORY: She has been a long-term cigarette smoker. Alcohol abuse as noted above, use of street drugs as well. REVIEW OF SYSTEMS: Unable to obtain much information as the patient is lethargic. About all she can tell me is that she feels bad and her belly hurts and she keeps asking for something for sleep. PHYSICAL EXAMINATION: GENERAL: Well-developed, well-nourished woman. She is quiet when not disturbed. However, she does have wrist restraints. VITAL SIGNS: Blood pressure 126/94 and heart rate of 129. HEENT: Anicteric. Pupils equal and round. Oropharynx clear. NECK: Supple. CHEST: Clear anteriorly. HEART: Tachycardic, S1, S2. ABDOMEN: Full and protuberant with ascites; however, does not tense or rigid. I cannot appreciate hepatosplenomegaly due to the ascites. RECTAL: Not done. EXTREMITIES: Without cyanosis, clubbing, edema. NEUROLOGIC: She is lethargic. I do not appreciate asterixis. SKIN: Spider nevi are present. LABORATORY DATA: White count of 31,000, hemoglobin 12.2, and platelet count of 333,000. INR of 1.2. Sodium 134, potassium 5.8, chloride 101, CO2 of 18, BUN of 37, creatinine 1.7. Lactic acid of 3.5, bilirubin normal at 1.0, AST 232, ALT 119, and alkaline phosphatase of 280. Albumin 2.2. ASSESSMENT: 1. End-stage liver disease with marked ascites. 2. Questionable hematemesis, in addition to above, last January, she had an upper endoscopy here and varices were not described. She was noted to have portal hypertensive gastropathy. [address] [address] CONSULTATION Name: HALINAAugust Room #: 351-P [facility] IN .R.#: [id number] Admission: 08/27/18 ������������������ Attend Phys: Ancelmo Barakat MD Discharge: ������������������ Date of : 61 Report #: [id number] 3. Encephalopathy, likely hepatic in nature. 4. Alcohol abuse. 5. Hepatitis C. 6. Prerenal azotemia, likely secondary to diuretics. 7. Hyperkalemia. 8. Mild acidosis, lactate of 3.5. 9. History of chronic pancreatitis. RECOMMENDATIONS: 1. Agree with Xifaxan. 2. Agree with lactulose. 3. Paracentesis likely first of the week. 4. Agree with antibiotics with elevated white count need to be concerned about the possible spontaneous bacterial peritonitis. However, this elevation of white count may be on the basis of her lung disease. 5. Check lipase, regarding history of pancreatitis. 6. Observe for signs of bleeding. Hemoglobin at this time is normal. 7. Consider upper endoscopy if there is evidence of significant bleeding. 8. PPI. ��������������������������������������������� <ELECTRONICALLY SIGNED> ���������������������������������������� By: Ryan Canales MD ��������������������������������������������� 08/29/18 1432 [id number] Ryan Canales MD /nt
[2018-08-29 17:22] VITALS: BP 148/98
--- NOTE | 2018-08-29 18:49 | NUR ---
PATIENT CONT ON RESTRAINTS SHE STILL ATTEMPTS TO LEAVE THE BED WITHOUT ASSIST AND KEEPS ATTEMPTING TO TAKE OFF HER IV. SHE IS PLEASANT BUT DOES NOT EASILY FOLLOW DIRECTIONS. SHE IS NOW SLEEPING. PAIN MEDICAITONS ADJUSTED AND IT WAS MORE EFFECITVE. WILL CONT WITH PLAN OF CARE.
[2018-08-29 19:23] VITALS: BP 119/83
[2018-08-30 04:32] VITALS: BP 133/93
--- NOTE | 2018-08-30 04:53 | NUR ---
ASSUMED CARE OF PT AT 1900. A&Ox3 W/ OCCASIONAL CONFUSION AND IMPULSIVENESS. ST ON TELE, UP TO 140'S WHEN UP TO BR OR IN ROOM. DISCONTINUED WRIST RESTRAINTS. PT IS STILL IMPULSIVELY GETTING OUT OF BED BUT HAS NOT BEEN PULLING ON HER IV. SAFETY PRECAUTIONS IN PLACE W/ BED ALARM AND CLOSE MONITORING CLOSE TO NURSING STATION. GAVE PAIN AND ANXIETY MEDS W/ PARTIAL RELIEF. PT ASKED THIS STAFF VERY QUIETLY TO SNEAK HER MORE MEDS. STATED SHE WAS TAKING EVERYTHING BEFORE COMING HERE INCLUDING DILAUDID, FENTANYL, ATIVAN AND SOME OTHERS. DID NOT GIVE ADDITIONAL MEDICATIONS, REDIRECTED TO GET COMFORTABLE IN BED. CURRENTLY RESTING BUT RESTLESS. ABDOMEN VERY DISTENDED AND HARD. RATED PAIN 8-10/10 IN ABDOMEN AND BACK, MEDS GIVEN DOCUMENTED W/ PARTIAL RELIEF. SLOW PROGRESSION TOWARDS POC GOALS.
[2018-08-30 06:28] LABS: HEMATOCRIT 33.9 % (37.0-47.0); HEMOGLOBIN 11.1 gm/dL (12.0-15.0); MCH 28.4 pg (26.0-34.0); MCHC 32.6 g/dL (28.0-37.0); MCV 87.1 fL (80.0-100.0); RBC 3.89 mil/uL (4.20-5.00); RDW 15.2 % (10.5-14.5); WBC 23.4 thou/uL (4.0-11.0)
[2018-08-30 06:42] LABS: ALBUMIN 1.9 g/dL (3.4-5.0); CALCIUM 8.4 mg/dL (8.5-10.1); CREATININE 1.7 mg/dL (0.6-1.0); POTASSIUM 3.8 mmol/L (3.5-5.1); TOTAL BILIRUBIN 0.8 mg/dL (<0.1-1.0); TOTAL PROTEIN 5.6 g/dL (6.4-8.2)
[2018-08-30 07:21] VITALS: BP 137/93
[2018-08-30 11:37] VITALS: BP 107/72
--- NOTE | 2018-08-30 14:09 | NUR ---
dp faxed initial referal to [facility], patient is from there, dp also notified Dai/[facility]
[2018-08-30 14:10] LABS: COLOR YELLOW; SOURCE ABDOMINAL; TOTAL VOLUME 35 mL
[2018-08-30 14:11] LABS: CLARITY CLEAR
[2018-08-30 14:17] LABS: BF NUCLEATED CELLS 117; BF RBC 97
--- NOTE | 2018-08-30 14:17 | NUR ---
INITIAL ASSESSMENT: Received consult. BRIGHT reviewed chart and spoke with nursing and attending physician. Pt was admitted from [facility] due tp alcoholic cirrhosis/pancreatitis. Pt to have paracentesis this afternoon. Pt had been in restraints and they were removed during shift boss. BRIGHT met with pt at bedside. Introduced role of SW. Pt is alert/orientated. Pt confirms plan is for her to return to [facility]. SW asked about any family/friends that would need to be updated. Pt states she has siblings and an adult son, but she does not have any contact with them and does not know where they live. SW discussed hospice info visit. Pt states she remembers having that conversation that last time she was hospitalized. SW offered to arrange info visit at [facility] prior to returning to her nursing facility. Options provided for hospice agencies. No preference voiced. BRIGHT contacted liaison with [facility] who states they have [facility], [place] and [facility]. BRIGHT faxed referral to [facility] and notified liaison. air liaison and special staff to meet with pt tomorrow morning around 0900. development planner to fax clinical info to the facility for review. BRIGHT is following to assist as needed with discharge planning.
--- NOTE | 2018-08-30 14:38 | NUR ---
Assess due to pt with ESLD, progressive lung mass with ? mets. Ascites and abdominal distension, paracentesis. Chart reviewed, CM following for possible hospice consideration. Diet as tolerated, RD will defer further nutrition assessment unless consulted.
[2018-08-30 15:20] LABS: BF MACROPHAGE 14; BF NEUTROPHILS 12
[2018-08-30 15:22] VITALS: BP 132/86
[2018-08-30 19:16] VITALS: BP 134/83
--- NOTE | 2018-08-30 19:42 | NUR ---
PATIENT HAD PARACENTESIS TODAY AND SHE TOLERATED WELL. 7.1L WAS COLLECTED. HE STILL COMPLAINTS OF PAIN WHEN AND ASKS FOR PAIN MEDICATION ON CONSTANT BASES EVEN WHEN MED HAS JUST BEEN ADMININSTERED. SHE IS RESTLESS ON THE BED. OFF RESTRAINTS TODAY AND HAS NOT ATTEMPTED TO LEAVE BED WITHOUT ASSSIST. WILL CONT WITH PLAN OF CARE.
[2018-08-31 03:53] VITALS: BP 140/84
--- NOTE | 2018-08-31 03:54 | NUR ---
ASSUMED PT CARE AROUND 1900. ORIENTED TO PERSON AND TIME. CONFUSED REGARDING PLACE AND SOMETIMES SITUATION. C/O BACK PAIN AND ABDOMINAL PAIN, MOSTLY ON RIGHT SIDE OF ABDOMEN. PRN PAIN MEDICATION GIVEN WITH PARTIAL RELIEF. ZOFRAN GIVEN FOR C/O NAUSEA. PT SLEPT MOST OF THE NIGHT. RESP EVEN AND UNLABORED. UP W/ ASSIST TO BTR TO VOID. PT IS IMPULSIVE AT TIMES. FALL PRECAUTIONS IN PLACE. NOT PROGRESSING WELL TOWARD POC GOALS. WILL CONTINUE TO MONITOR FURTHER.
[2018-08-31 07:21] VITALS: BP 133/81
--- NOTE | 2018-08-31 10:54 | NUR ---
SW reviewed chart and spoke with nursing and attending physician. Pt had paracentesis yesterday. [facility] was onsite this morning and met with pt briefly. Pt with periods of confusion and unable to answer all questions appropriately. Consult for palliative care physician ordered. BRIGHT is following to assist as needed with discharge planning.
[2018-08-31 11:27] VITALS: BP 115/81
[2018-08-31 13:10] LABS: BODY FLUID ALBUMIN 0.3 g/dL (()); BODY FLUID AMYLASE 178 U/L (()); BODY FLUID GLUCOSE 110 mg/dL (()); BODY FLUID LDH 79 IU/L (()); BODY FLUID PROTEIN 0.8 g/dL (())
--- NOTE | 2018-08-31 14:35 | NUR ---
RESIDENT RESTED IN ROOM ALL DAY. DID GET UP FOR A SHOWER. SHE SLEPT FOR A COUPLE OF HOURS. RESTLESS MOST OF THE TIME. PAIN MEDICATION ADMININISTERED AND PAIN IS CONTROLLED ONLY FOR A SHORT TIME (LESS THAN HOUR) AND SHE WILL RESUME REQUESTING PAIN MEDICAITON. WILL CONT WITH PLAN OF CARE.
[2018-08-31 16:23] VITALS: BP 117/83
[2018-08-31 19:08] VITALS: BP 121/83
[2018-09-01 03:22] VITALS: BP 108/79
--- NOTE | 2018-09-01 04:36 | NUR ---
ASSUMED PT CARE AROUND 1900. ORIENTED TO PERSON AND SOMETIMES PLACE. MOSTLY CONFUSED. PT SLEPT MOST OF THE NIGHT. C/O RT SIDED ABDOMINAL PAIN AND BACK PAIN. ALSO C/O NAUSEA. PRN PAIN MEDICATION AND NAUSEA MEDICATION GIVEN INDICATED. VSS. AFEBRILE. FALL PRECAUTIONS IN PLACE. UP W/ ASSIST TO BTR. WEAK GAIT. RESP EVEN AND UNLABORED DURING THE NIGHT. NOT PROGRESSING WELL TOWARD POC GOALS. WILL CONTINUE TO MONITOR FURTHER.
[2018-09-01 07:37] VITALS: BP 130/95
[2018-09-01 09:15] LABS: SOURCE ABDOMINAL
--- NOTE | 2018-09-01 11:10 | PATH ---
[facility] [address] [place] [address] PATHOLOGY RPT PROCEDURE Name: HALINAAugust Room #: 351-P ADM IN M.R.#: [id number] ������������������ Admission: 08/27/18 ������������������ Date of : 61 Discharge: Report #: [id number] Path Case #: [id number] Note [facility] Accession Number: [id number] TESTS RESULT FLAG UNITS REF RANGE LAB Clinician Provided Cytology Information No. of containers..01 Other (Miscellaneous) Source: 01 ABDOMINAL FLUID DIAGNOSIS: 02 ABDOMINAL FLUID NEGATIVE FOR MALIGNANT CELLS. REACTIVE MESOTHELIAL CELLS ARE PRESENT. THIS INTERPRETATION INCLUDES EVALUATION OF A CELL BLOCK. Pathologist ICD10: 02 K70.30 Signed out by: Louise Joiner MD, Pathologist NPI- [id number] Performed by: Arti Smith, [place] Worker ([facility]) Gross description: 01 15ML, LIGHT YELLOW, CLOUDY /LCS FLAG LEGEND: L-Low Normal,H-High Normal,LL-Alert Low,HH-Alert High <-Panic Low,>-Panic High,A-Abnormal,AA-Critical Abnormal Performed at: [address] [place] [address] Josiah Weir MD, [address] [address] Louise Joiner MD, Specimen Comment: A courtesy copy of this report has been sent to Specimen Comment: [phone], , . Specimen Comment: Report sent to DR MARQUEZ,DR HURD / DR GALLEGO Specimen Comment: A duplicate report has been generated due to demographic updates. Performed at: [address], [place], [place] [address] MD Josiah Weir MD Phone: [phone]
[2018-09-01 12:00] VITALS: BP 102/79
--- NOTE | 2018-09-01 12:13 | NUR ---
PT ALERT AND ORIENTED TIMES TWO, VERY CONFUSED AT TIMES. VSS, 97%RA, ST ON TELE. PT C/O ABD AND BACK PAIN. PRN MEDICATIONS GIVEN WITH SOME RELEIF. PT TOLERATES MEDS, AND SMALL PORTIONS OF HER MEALS. PT UP TO BSC WITH ASSIST OF ONE. WILL CONTINUE TO MONITOR.
--- NOTE | 2018-09-01 14:17 | NUR ---
DISCHARGE PLANNING. PATIENT TO DISCHARGE TO [facility]. UPDATED CLINICAL INFORMATION FAXED TO [facility] ADMISSIONS. CALL PLACED TO NICOLE TO NOTIFY OF UPDATED INFORMATION FAXED TO HER AND PATIENT DISCHARGE PLAN. FOLLOWING TO ASSIST WITH DC NEEDS. UNIT CM/SW AWARE
--- NOTE | 2018-09-01 15:31 | NUR ---
SW reviewed chart and spoke with nursing and attending physician. Plan is for pt to return to [facility] with hospice when medically stbale. [facility] following to assist with admitting pt on hospice if pt is agreeable. SW is following to assist as needed with discharge planning.
[2018-09-01 16:41] VITALS: BP 107/75
[2018-09-01 19:10] VITALS: BP 126/79
--- NOTE | 2018-09-02 00:25 | NUR ---
ASSUMED PT CARE 2199. PT SLEEPING. RECEIVED REPORT FROM NURSE. REASSESSMENT COMPLETE. AGREE WITH PREVIOUS NURSES ASSESSMENT. ABDOMEN ROUND, FIRM AND DISTENDED. PICC DRESSING C/D/I. FALL RISK PRECAUTIONS IN PLACE. PT CALL LIGHT AND PERSONAL BELONINGS WITHIN REACH. WILL CONTINUE POC UNTIL EOS.
[2018-09-02 03:21] VITALS: BP 123/92
[2018-09-02 08:00] VITALS: BP 118/93
--- NOTE | 2018-09-02 10:47 | NUR ---
BRIGHT reviewed chart and spoke with nursing and attending physician. Pt is agreeable with hospice services. Attending physician states that pt has the capacity to make her own decisions. BRIGHT met with pt at bedside to discuss discharge plan. Pt does recall meeting with hospice on Thursday. SW discussed returning to [facility] with [facility]. Pt is agreeable. BRIGHT contacted David with [facility], who states that one of their RNs will see pt soon to sign admission ppwk. Awaiting final discharge orders. [facility] updated by community development planner. BRIGHT is following to assist as needed with discharge planning.
[2018-09-02 11:25] LABS: HEMATOCRIT 38.2 % (37.0-47.0); HEMOGLOBIN 12.2 gm/dL (12.0-15.0); MCH 27.8 pg (26.0-34.0); MCHC 32.1 g/dL (28.0-37.0); MCV 86.8 fL (80.0-100.0); RBC 4.4 mil/uL (4.20-5.00); RDW 15.7 % (10.5-14.5); WBC 30.3 thou/uL (4.0-11.0)
[2018-09-02 11:28] VITALS: BP 145/85
[2018-09-02 11:32] LABS: CALCIUM 8.4 mg/dL (8.5-10.1); CREATININE 2.1 mg/dL (0.6-1.0); POTASSIUM 3.8 mmol/L (3.5-5.1)
[2018-09-02] MEDS ORDERED: OXYCODONE HCL15 MG PO (11:55)
[2018-09-02] MEDS ORDERED: DIFLUCAN200 MG PO (11:55)
--- NOTE | 2018-09-02 16:03 | NUR ---
PT ALERT TO SELF. VSS, 98%RA, ST ON TELE. C/O ABD AND BACK PAIN PRN MEDICATIONS GIVEN WITH SOME RELEIF. PT UP TO BSC WITH ASSIST OF ONE. PT TOLERATES MEDS AND MEALS. PLANS FOR PT TO RETURN TO [facility] TODAY. REPORT GIVEN. WILL CONTINUE TO MONITOR.
== END 2018-09-02 16:49 | DRG 871 ==
LOC: 3W 20:06
PROVIDERS: Nurse Practitioner Family; Specialist; ADMIT Hospitalist
PROC: 02HV33Z Insertion of Infusion Device into Superior Vena Cava, Percutaneous Approach (ICD-10-PCS; principal; 2018-08-29)
PROC: B548ZZA Ultrasonography of Superior Vena Cava, Guidance (ICD-10-PCS; principal; 2018-08-29)
PROC: 0W9G3ZX Drainage of Peritoneal Cavity, Percutaneous Approach, Diagnostic (ICD-10-PCS; 2018-08-30)
DX: A41.9 Sepsis, unspecified organism (principal); K85.90 Acute pancreatitis without necrosis or infection, unspecified; R18.8 Other ascites; N17.9 Acute kidney failure, unspecified; K72.90 Hepatic failure, unspecified without coma; F41.9 Anxiety disorder, unspecified; G89.4 Chronic pain syndrome; F17.210 Nicotine dependence, cigarettes, uncomplicated; I10 Essential (primary) hypertension; F10.10 Alcohol abuse, uncomplicated; E87.5 Hyperkalemia; B19.20 Unspecified viral hepatitis C without hepatic coma; K74.60 Unspecified cirrhosis of liver; R91.8 Other nonspecific abnormal finding of lung field; L29.9 Pruritus, unspecified; Z71.6 Tobacco abuse counseling; Z91.19 Patient's noncompliance with other medical treatment and regimen; Z79.899 Other long term (current) drug therapy
CPT/HCPCS: 10879; 27000